=== PATIENT | female | born 1990 | race Caucasian/White ===

== ENCOUNTER 2016-10-18 22:16 | Emergency (ER) | payer BC ==
[2016-10-18] MEDS ORDERED: Albuterol/Ipratropium 3.0-0.5 MG/3 ML Neb Soln NEB SCH (22:30)
[2016-10-18] MEDS ORDERED: ALPRAZolam 0.5 MG Tab PO ONE (22:30)
[2016-10-18] MEDS ORDERED: predniSONE 20 MG Tab PO ONE (22:46)
--- NOTE | 2016-10-18 23:25 | EDM.PDOC ---
ED HPI GENERAL MEDICAL PROBLEM - General Chief Complaint: Respiratory Problem Stated Complaint: ASTHMA ATTACK Time Seen by Provider: 10/18/16 22:17 Source of Information: Reports: Patient History Limitations: Reports: No Limitations - History of Present Illness INITIAL COMMENTS - FREE TEXT/NARRATIVE: HISTORY AND PHYSICAL: History of present illness: [26 show female with a history of anxiety previously treated and asthma not requiring treatment in years now presents to the emergency department complaining of anxiety and asthma. Patient states she perceives some wheezing earlier today. This caused her anxiety to act up she went to her brother's house and uses nebulized treatment. She feels improved now came to the emergency department for evaluation. Patient thinks environmental triggers such as the wet weather over the last day and seasonal allergies caused her asthma back up. She has no fevers chills sweats or shaking chills. She feels tightness with her wheezing and anxiety however she has no productive cough or fever and has no exertional chest pain or pleuritic pain.] Review of systems: As per history of present illness and below otherwise all systems reviewed and negative. Past medical history: As per history of present illness and as reviewed below otherwise noncontributory. Surgical history: As per history of present illness and as reviewed below otherwise noncontributory. Social history: No reported history of drug or alcohol abuse. Family history: As per history of present illness and as reviewed below otherwise noncontributory. Physical exam: Smiling well-appearing very cheerful normal respiratory rate and pulse ox no tachycardia mild prolonged expirations bilateral no matt wheezes HEENT: Atraumatic, normocephalic, pupils reactive, negative for conjunctival pallor or scleral icterus, mucous membranes moist, throat clear, neck supple, nontender, trachea midline. Lungs: Clear to auscultation, breath sounds equal bilaterally, chest nontender. Heart: S1S2, regular, negative for clicks, rubs, or JVD. Abdomen: Soft, nondistended, nontender. Negative for masses or hepatosplenomegaly. Negative for costovertebral tenderness. Pelvis: Stable nontender. Genitourinary: Deferred. Rectal: Deferred. Extremities: Atraumatic, negative for cords or calf pain. Neurovascular unremarkable. Neuro: Awake, alert, oriented. Cranial nerves grossly unremarkable. Cerebellum unremarkable. Motor and sensory unremarkable throughout. Exam nonfocal. Diagnostics: [Chest x-ray no acute disease interpreted by me revealed] EKG Normal sinus rhythm at 92 normal axis no STEMI Therapeutics: [Single albuterol nebulized therapy and prednisone by mouth] Impression: [Asthma exacerbation anxiety exacerbation ] Plan: [Signs and symptoms consistent with mild environmental triggered asthma exacerbation with associated anxiety symptoms. X-ray benign normal respiratory rate and pulse ox heart rate 90 on M.D. exam ,no clinical evidence of PE Patient improved after treatment.no further workup or treatment indicated patient will follow up PCP strict return precautions given Definitive disposition and diagnosis as appropriate pending reevaluation and review of above. chest tightness Pain Score (Numeric/FACES): 5 - Related Data Allergies Allergy/AdvReac Type Severity Reaction Status Date / Time lurasidone [From Latuda] Allergy Paralysis Verified 10/18/16 22:20 Penicillins Allergy Other Verified 10/18/16 22:20 Home Meds: Home Meds Albuterol Sulfate [Proair Hfa] 8.5 gm IH Q4H PRN #1 hfa.aer.ad 10/18/16 [Rx] Control Pills 1 tab PO DAILY 10/18/16 [History] Prednisone [IMW: predniSONE] 60 mg PO WITHBREAKFAST #5 tab 10/18/16 [Rx] Past Medical History HEENT History: Reports: None Cardiovascular History: Reports: None, Hypertension Respiratory History: Reports: Asthma Gastrointestinal History: Reports: None Genitourinary History: Reports: None 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 Musculoskeletal History: Reports: None Neurological History: Reports: None Psychiatric History: Reports: Anxiety, Bipolar, Dementia, OCD Endocrine/Metabolic History: Reports: None Hematologic History: Reports: None Immunologic History: Reports: None Oncologic (Cancer) History: Reports: None Dermatologic History: Reports: None - Infectious Disease History Infectious Disease History: Reports: None - Past Surgical History GI Surgical History: Reports: Cholecystectomy Social & Family History - Family History Family Medical History: Noncontributory - Tobacco Use Smoking Status *Q: Never Smoker - Caffeine Use Caffeine Use: Reports: Coffee - Recreational Drug Use Recreational Drug Use: No ED ROS GENERAL - Review of Systems Review Of Systems: See Below (History of present illness) ED EXAM, GENERAL - Physical Exam Exam: See Below (History of present illness) Course - Vital Signs Last Recorded V/S: Last Vital Signs Temp 36.6 C 10/18/16 22:21 Pulse 99 10/18/16 22:21 Resp 18 10/18/16 22:21 BP 116/79 10/18/16 22:21 Pulse Ox 98 10/18/16 22:21 - Orders/Labs/Meds Orders: Active Orders 24 hr Category Date Time Status RT Aerosol Therapy [RC] ASDIRECTED Care 10/18/16 22:32 Active Chest 1V Frontal [CR] Stat Exams 10/18/16 22:33 Taken Albuterol/Ipratropium [DuoNeb 3.0-0.5 MG/3 ML] Med 10/18/16 22:30 Active 3 ml NEB STAT predniSONE Med 10/19/16 22:32 Once 40 mg PO ONETIME ONE Medication Orders Albuterol/Ipratropium (Duoneb 3.0-0.5 Mg/3 Ml) 3 ml NEB STAT EMILIA Last Admin: 10/18/16 22:42 Dose: 3 ml Prednisone (Prednisone) 40 mg PO ONETIME ONE Stop: 10/19/16 22:33 Meds: Medications Generic Name Dose Route Start Last Admin Trade Name Freq PRN Reason Stop Dose Admin Albuterol/Ipratropium 3 ml 10/18/16 22:30 10/18/16 22:42 Duoneb 3.0-0.5 Mg/3 Ml NEB 3 ml STAT EMILIA Administration Prednisone 40 mg 10/19/16 22:32 Prednisone PO 10/19/16 22:33 ONETIME ONE Discontinued Medications Generic Name Dose Route Start Last Admin Trade Name Freq PRN Reason Stop Dose Admin Alprazolam 0.5 mg 10/18/16 22:30 10/18/16 23:03 Xanax PO 10/18/16 22:31 0.5 mg NOW ONE Administration Prednisone 40 mg 10/18/16 22:46 10/18/16 23:02 Prednisone PO 10/18/16 22:47 40 mg ONETIME ONE Administration Departure - Departure Time of Disposition: 23:30 Disposition: Home, Self-Care 01 Condition: Good Clinical Impression: Asthma attack, Anxiety - Discharge Information Instructions: Asthma, Adult Referrals: PCP,None [Primary Care Provider] - Forms: ED Department Discharge Additional Instructions: It appears that environmental triggers have cause you to have an attack of your asthma today. Your symptoms are very mild and improved dramatically after treatment. Finish prednisone as prescribed once a day for more days. Use your inhaler 2 puffs every 4 hours as needed with a spacer. It seems that your asthma attack caused an episode of anxiety for you. Follow-up with your DrGuerline for reevaluation and to discuss whether a prescription for anxiety medicine might be right for you. Your Dr. in one to 2 days and return immediately for new severe or worsening symptoms - My Orders Last 24 Hours: My Active Orders 10/18/16 22:30 Albuterol/Ipratropium [DuoNeb 3.0-0.5 MG/3 ML] 3 ml NEB STAT 10/18/16 22:32 RT Aerosol Therapy [RC] ASDIRECTED 10/18/16 22:33 Chest 1V Frontal [CR] Stat 10/19/16 22:32 predniSONE 40 mg PO ONETIME ONE - Assessment/Plan Last 24 Hours: My Active Orders 10/18/16 22:30 Albuterol/Ipratropium [DuoNeb 3.0-0.5 MG/3 ML] 3 ml NEB STAT 10/18/16 22:32 RT Aerosol Therapy [RC] ASDIRECTED 10/18/16 22:33 Chest 1V Frontal [CR] Stat 10/19/16 22:32 predniSONE 40 mg PO ONETIME ONE
[2016-10-19 00:05] VITALS: BP 97/59
--- NOTE | 2016-10-19 15:02 | CR ---
EXAM DATE: 10/18/16 PATIENT'S AGE: 26 Patient: CASS GILMORE Facility: [place], [place] Site . Site : 1990 Study: XRay Chest [id number] 10:48:21 PM Ordering Physician: Nico Taylor Final Report: Indication: Shortness of breath, asthma attack Technique: Chest 1 view Comparison: None Findings/Impression: Cardiovascular and mediastinum: Heart size and vasculature are normal in caliber and appearance. Mediastinum is within normal limits. Lungs and pleural space: Lungs are clear. No sign of infiltrate or mass. No sign of pleural effusion. No pneumothorax. Bones and soft tissues: Surgical clips noted in the right upper quadrant Dictated by Shira Hudson MD @ Oct 18 2016 11:06PM (Electronic Signature) Report Signed by Proxy. ROGERIO
[2016-10-19] MEDS ORDERED: predniSONE 20 MG Tab PO ONE (22:32)
== END 2016-10-18 23:59 | disposition home or self-care (01) ==
LOC: MW.ED 22:16
DX: J45.901 Unspecified asthma with (acute) exacerbation (principal); F41.9 Anxiety disorder, unspecified; Z88.0 Allergy status to penicillin; Z88.8 Allergy status to other drugs, medicaments and biological substances; Z90.49 Acquired absence of other specified parts of digestive tract
CPT/HCPCS: 71010; 99285; A9270; 93005; 99283

== ENCOUNTER 2017-05-01 11:19 | Emergency (ER) | payer BC ==
[2017-05-01] MEDS ORDERED: Albuterol/Ipratropium 3.0-0.5 MG/3 ML Neb Soln NEB ONE (11:39)
--- NOTE | 2017-05-01 11:43 | EDM.PDOC ---
ED HPI GENERAL MEDICAL PROBLEM - General Chief Complaint: Respiratory Problem Stated Complaint: ASTHMA/COUGHING Time Seen by Provider: 05/01/17 11:40 Source of Information: Reports: Patient History Limitations: Reports: No Limitations - History of Present Illness INITIAL COMMENTS - FREE TEXT/NARRATIVE: HISTORY AND PHYSICAL: [26-year-old female presenting with difficulty breathing she has history of asthma] History of Present Illness: [Patient relates having difficulty for the last month shortness of breath and coughing Patient has been using her brother's nebulizer machine up to 3 times a day. She hasn't inhaler of Proventil and her has not been helping. Generally she takes control pills daily and nothing else] Review of Systems: As per history of present illness and below otherwise all systems reviewed and negative. Past medical history: As per history of present illness and as reviewed below otherwise noncontributory. Surgical history: As per history of present illness and as reviewed below otherwise noncontributory. Social history: No reported history of drug or alcohol abuse. Family history: As per history of present illness and as reviewed below otherwise noncontributory. Physical exam: Slender young woman who answers questions appropriately. she is speaking in full sentences, and complaining of shortness of breath HEENT: Atraumatic, normocehpalic, pupils reactive, negative for conjunctival pallor or scleral icterus, mucous membranes moist, throat clear, neck supple, nontender, trachea midline. Lungs: Clear to auscultation, breath sounds equal bilaterally and shallow, chest non tender. Heart: S1S2, regular, negative for clicks, rubs, or JVD. Abdomen: Soft, nondistended, nontender. Negative for masses or hepatossplenmegaly. Negative for costovertebral tenderness. Pelvis: Stable nontender. Genitourinary: Deferred. Rectal: Deferred Extremities: Atraumatic, negative for cords or calf pain. Neurovascular unremarkable. Neuro: Awake, alert, oriented. Cranial nerves II through XII unremarkable. Cerebellum unremarkable. Motor and sensory unremarkable throughout. Exam nonfocal. Discussed with the patient that she is not having a pneumonia. Exacerbation of asthma Diagnostics: [Chest x-ray] Therapeutics: [DuoNeb] Solu-Medrol 125 IM Impression: [Asthma exacerbation] Plan: [Discharged to home ]DuoNeb per nebulizer up to 4 times daily Medrol Dosepak Definitive disposition and diagnosis as appropriate pending reevaluation and review of above. Onset: Gradual Duration: Week(s): (4) Location: Reports: Chest - Related Data Allergies Allergy/AdvReac Type Severity Reaction Status Date / Time lurasidone [From Latuda] Allergy Paralysis Verified 05/01/17 11:34 Penicillins Allergy Other Verified 05/01/17 11:34 Home Meds: Home Meds Albuterol Sulfate [Proair Hfa] 8.5 gm IH Q4H PRN #1 hfa.aer.ad 10/18/16 [Rx] Control Pills 1 tab PO DAILY 10/18/16 [History] Prednisone [IMW: predniSONE] 60 mg PO WITHBREAKFAST #15 tab 10/18/16 [Rx] Albuterol/Ipratropium [DuoNeb 3.0-0.5 MG/3 ML] 3 ml .XX Q6HR PRN #1 box [Rx] methylPREDNISolone [Medrol] 4 mg PO ASDIRECTED #1 dosepk 05/01/17 [Rx] Past Medical History HEENT History: Reports: None Cardiovascular History: Reports: None, Hypertension Respiratory History: Reports: Asthma Gastrointestinal History: Reports: None Genitourinary History: Reports: None 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 Musculoskeletal History: Reports: None Neurological History: Reports: None Psychiatric History: Reports: Anxiety, Bipolar, Dementia, OCD Endocrine/Metabolic History: Reports: None Hematologic History: Reports: None Immunologic History: Reports: None Oncologic (Cancer) History: Reports: None Dermatologic History: Reports: None - Infectious Disease History Infectious Disease History: Reports: Chicken Pox - Past Surgical History GI Surgical History: Reports: Cholecystectomy Social & Family History - Family History Family Medical History: Noncontributory - Tobacco Use Smoking Status *Q: Never Smoker - Caffeine Use Caffeine Use: Reports: Other Other Caffeine Use: occasional use - Recreational Drug Use Recreational Drug Use: No ED ROS GENERAL - Review of Systems Review Of Systems: ROS reveals no pertinent complaints other than HPI. ED EXAM, GENERAL - Physical Exam Exam: See Below (See dictation) Course - Vital Signs Last Recorded V/S: Last Vital Signs Temp 37.0 C 05/01/17 11:31 Pulse 100 05/01/17 11:31 Resp 18 05/01/17 11:31 BP 111/74 05/01/17 11:31 Pulse Ox - Orders/Labs/Meds Orders: Active Orders 24 hr Category Date Time Status RT Aerosol Therapy [RC] ASDIRECTED Care 05/01/17 11:39 Active Chest 2V [CR] Stat Exams 05/01/17 11:39 Taken Meds: Medications Discontinued Medications Generic Name Dose Route Start Last Admin Trade Name Freq PRN Reason Stop Dose Admin Albuterol/Ipratropium 3 ml 05/01/17 11:39 05/01/17 12:02 Duoneb 3.0-0.5 Mg/3 Ml NEB 05/01/17 11:40 3 ml ONETIME ONE Administration Methylprednisolone Sodium Succinate 125 mg 05/01/17 11:49 05/01/17 12:41 Solu-Medrol IM 05/01/17 11:50 125 mg ONETIME ONE Administration Departure - Departure Time of Disposition: 13:19 Disposition: Home, Self-Care 01 Condition: Good Clinical Impression: Acute asthma - Discharge Information Prescriptions: Albuterol/Ipratropium [DuoNeb 3.0-0.5 MG/3 ML] 3 ml .XX Q6HR PRN #1 box PRN Reason: Shortness Of Breath methylPREDNISolone [Medrol] 4 mg PO ASDIRECTED #1 dosepk Instructions: Asthma, Adult Referrals: Marianne Noriega MD [Primary Care Provider] - Forms: ED Department Discharge Additional Instructions: The following information is given to patients seen in the emergency department who are being discharged to home. This information is to outline your options for follow-up care. We provide all patients seen in our emergency department with a follow-up referral. The need for follow-up, as well as the timing and circumstances, are variable depending upon the specifics of your emergency department visit. If you don't have a primary care physician on staff, we will provide you with a referral. We always advise you to contact your personal physician following an emergency department visit to inform them of the circumstance of the visit and for follow-up with them and/or the need for any referrals to a consulting specialist. The emergency department will also refer you to a specialist when appropriate. This referral assures that you have the opportunity for followup care with a specialist. All of these measure are taken in an effort to provide you with optimal care, which includes your followup. Under all circumstances we always encourage you to contact your private physician who remains a resource for coordinating your care. When calling for followup care, please make the office aware that this follow-up is from your recent emergency room visit. If for any reason you are refused follow-up, please contact the [facility] emergency department at and asked to speak to the emergency department charge nurse. You were treated with DuoNeb per nebulizer in the ER You were treated with Solu-Medrol injection, which is a steroid to reduce inflammation Prescription for DuoNeb has been sent to your pharmacy Prescription for steroid of Medrol has been given to pharmacy Follow-up with your primary care provider next week Any worsening over the weekend please return for further evaluation and treatment - My Orders Last 24 Hours: My Active Orders 05/01/17 11:39 RT Aerosol Therapy [RC] ASDIRECTED Chest 2V [CR] Stat - Assessment/Plan Last 24 Hours: My Active Orders 05/01/17 11:39 RT Aerosol Therapy [RC] ASDIRECTED Chest 2V [CR] Stat
[2017-05-01] MEDS ORDERED: methylPREDNISolone Sodium Succinate 125 MG/2 ML SDV IM ONE (11:49)
[2017-05-01 13:38] VITALS: BP 105/61
--- NOTE | 2017-05-03 17:28 | CR ---
EXAM DATE: 05/01/17 PATIENT'S AGE: 26 Patient: CASS GILMORE Facility: [place], [place] Site . Site : 1990 Study: XRay Chest [id number]/17/2018 12:37:28 PM Ordering Physician: Doctor Moore Final Report: INDICATION: pain/shortness of breath. Asthma is acting up COMPARISON: Chest x-ray dated 18 October 2016. FINDINGS: PA and lateral chest x-rays show a normal cardiac silhouette. The lungs show no focal pulmonary opacities. Sharp pleural margins. No pneumothorax. IMPRESSION: No evidence of acute pulmonary abnormalities. Dictated by Jaquan Calderon MD @ 05/01/2017 12:53:40 PM Dictated by: Jaquan Calderon MD @ 05/01/2017 12:53:51 (Electronic Signature) Report Signed by Proxy. HU[facility] PSYCHIATRIC CENTERAva
== END 2017-05-01 13:27 | disposition home or self-care (01) ==
LOC: MW.ED 11:19
DX: J45.901 Unspecified asthma with (acute) exacerbation (principal); I10 Essential (primary) hypertension; Z88.0 Allergy status to penicillin; Z88.8 Allergy status to other drugs, medicaments and biological substances
CPT/HCPCS: 71046; 94640; 99283; J2930

== ENCOUNTER 2018-07-12 00:37 | Emergency (ER) | payer BC ==
--- NOTE | 2018-07-12 00:52 | EDM.PDOC ---
ED HPI GENERAL MEDICAL PROBLEM - General Stated Complaint: CHEST PAIN Time Seen by Provider: 07/12/18 00:44 - History of Present Illness INITIAL COMMENTS - FREE TEXT/NARRATIVE: HISTORY AND PHYSICAL: History of present illness: Patient 27-year-old female presents with chest pain is vaguely described without associated chest breath palpitations nausea vomiting or diaphoresis. She denies drugs or alcohol Review of systems: As per history of present illness and below otherwise all systems reviewed and negative. Past medical history: As per history of present illness and as reviewed below otherwise noncontributory. Surgical history: As per history of present illness and as reviewed below otherwise noncontributory. Social history: No reported history of drug or alcohol abuse. Family history: As per history of present illness and as reviewed below otherwise noncontributory. Physical exam: HEENT: Atraumatic, normocephalic, pupils reactive, negative for conjunctival pallor or scleral icterus, mucous membranes moist, throat clear, neck supple, nontender, trachea midline. Lungs: Clear to auscultation, breath sounds equal bilaterally, chest nontender. Heart: S1S2, regular, negative for clicks, rubs, or JVD. Abdomen: Soft, nondistended, nontender. Negative for masses or hepatosplenomegaly. Negative for costovertebral tenderness. Pelvis: Stable nontender. Genitourinary: Deferred. Rectal: Deferred. Extremities: Atraumatic, negative for cords or calf pain. Neurovascular unremarkable. Neuro: Awake, alert, oriented. Cranial nerves II through XII unremarkable. Cerebellum unremarkable. Motor and sensory unremarkable throughout. Exam nonfocal. Diagnostics: CBC CMP troponin PT/INR chest x-ray EKG Therapeutics: IV O2 monitor Impression: #1 ATypical chest pain Definitive disposition and diagnosis as appropriate pending reevaluation and review of above. - Related Data Allergies Allergy/AdvReac Type Severity Reaction Status Date / Time lurasidone [From Latuda] Allergy Paralysis Verified 07/12/18 00:45 Penicillins Allergy Rash Verified 07/12/18 00:45 Home Meds: Home Meds Fluticasone/Salmeterol [Advair Hfa 230-21 Mcg Inhaler] 1 puff IH ASDIRECTED PRN 01/03/18 [History] Norgestimate-Ethinyl Estradiol [Tri-Linyah Tablet] 1 each PO DAILY 07/12/18 [ History] Past Medical History HEENT History: Reports: None Cardiovascular History: Reports: None, Hypertension Respiratory History: Reports: Asthma Gastrointestinal History: Reports: None Genitourinary History: Reports: None 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 Musculoskeletal History: Reports: None Neurological History: Reports: None Psychiatric History: Reports: Anxiety, Bipolar, Dementia, OCD Endocrine/Metabolic History: Reports: None Hematologic History: Reports: None Immunologic History: Reports: None Oncologic (Cancer) History: Reports: None Dermatologic History: Reports: None - Infectious Disease History Infectious Disease History: Reports: Chicken Pox - Past Surgical History GI Surgical History: Reports: Cholecystectomy Social & Family History - Family History Family Medical History: Noncontributory - Caffeine Use Caffeine Use: Reports: Other Other Caffeine Use: occasional use ED ROS GENERAL - Review of Systems Review Of Systems: ROS reveals no pertinent complaints other than HPI. ED EXAM, GENERAL - Physical Exam Exam: See Below (The dictation) Course - Vital Signs Last Recorded V/S: Last Vital Signs Temp 36.6 C 07/12/18 00:43 Pulse 90 07/12/18 00:43 Resp BP 125/83 07/12/18 00:43 Pulse Ox 100 07/12/18 00:43 - Orders/Labs/Meds Orders: Active Orders 24 hr Category Date Time Status EKG Documentation Completion [RC] STAT Care 07/12/18 00:48 Active Chest 1V Frontal [CR] Stat Exams 07/12/18 00:48 Ordered COMPREHENSIVE METABOLIC PN,CMP [CHEM] Stat Lab 07/12/18 01:04 Received INR,PT,PROTHROMBIN TIME [COAG] Stat Lab 07/12/18 01:04 Received TROPONIN I [CHEM] Stat Lab 07/12/18 01:04 Received Labs: Laboratory Tests 07/12/18 07/12/18 07/12/18 Range/Units 01:04 01:10 01:10 WBC 8.54 (4.0-11.0) K/uL RBC 4.91 (4.30-5.90) M/uL Hgb 14.5 (12.0-16.0) g/dL Hct 41.5 (36.0-46.0) % MCV 84.5 (80.0-98.0) fL MCH 29.5 (27.0-32.0) pg MCHC 34.9 (31.0-37.0) g/dL RDW Std Deviation 35.8 (28.0-62.0) fl RDW Coeff of Robbie 12 (11.0-15.0) % Plt Count 296 (150-400) K/uL MPV 9.50 (7.40-12.00) fL Neut % (Auto) 36.7 L (48.0-80.0) % Lymph % (Auto) 52.7 H (16.0-40.0) % Daniels % (Auto) 9.5 (0.0-15.0) % Eos % (Auto) 0.9 (0.0-7.0) % Baso % (Auto) 0.2 (0.0-1.5) % Neut # (Auto) 3.1 (1.4-5.7) K/uL Lymph # (Auto) 4.5 H (0.6-2.4) K/uL Daniels # (Auto) 0.8 (0.0-0.8) K/uL Eos # (Auto) 0.1 (0.0-0.7) K/uL Baso # (Auto) 0.0 (0.0-0.1) K/uL Urine Color YELLOW Urine Appearance CLEAR Urine pH 6.5 (5.0-8.0) Ur Specific [place] 1.015 (1.001-1.035) Urine Protein NEGATIVE (NEGATIVE) mg/dL Urine Glucose (UA) NEGATIVE (NEGATIVE) mg/dL Urine Ketones NEGATIVE (NEGATIVE) mg/dL Urine Occult Blood NEGATIVE (NEGATIVE) Urine Nitrite NEGATIVE (NEGATIVE) Urine Bilirubin NEGATIVE (NEGATIVE) Urine Urobilinogen 0.2 (<2.0) EU/dL Ur Leukocyte Esterase NEGATIVE (NEGATIVE) Urine HCG, Qual NEGATIVE (NEGATIVE) Departure - Departure Time of Disposition: 01:33 Disposition: Home, Self-Care 01 Condition: Good Clinical Impression: Atypical chest pain - Discharge Information Additional Instructions: The following information is given to patients seen in the emergency department who are being discharged to home. This information is to outline your options for follow-up care. We provide all patients seen in our emergency department with a follow-up referral. The need for follow-up, as well as the timing and circumstances, are variable depending upon the specifics of your emergency department visit. If you don't have a primary care physician on staff, we will provide you with a referral. We always advise you to contact your personal physician following an emergency department visit to inform them of the circumstance of the visit and for follow-up with them and/or the need for any referrals to a consulting specialist. The emergency department will also refer you to a specialist when appropriate. This referral assures that you have the opportunity for followup care with a specialist. All of these measure are taken in an effort to provide you with optimal care, which includes your followup. Under all circumstances we always encourage you to contact your private physician who remains a resource for coordinating your care. When calling for followup care, please make the office aware that this follow-up is from your recent emergency room visit. If for any reason you are refused follow-up, please contact the [facility] emergency department at and asked to speak to the emergency department charge nurse. Follow up primary medical doctor as needed as discussed during your is discussed - My Orders Last 24 Hours: My Active Orders 07/12/18 00:48 EKG Documentation Completion [RC] STAT Chest 1V Frontal [CR] Stat 07/12/18 01:04 COMPREHENSIVE METABOLIC PN,CMP [CHEM] Stat INR,PT,PROTHROMBIN TIME [COAG] Stat TROPONIN I [CHEM] Stat - Assessment/Plan Last 24 Hours: My Active Orders 07/12/18 00:48 EKG Documentation Completion [RC] STAT Chest 1V Frontal [CR] Stat 07/12/18 01:04 COMPREHENSIVE METABOLIC PN,CMP [CHEM] Stat INR,PT,PROTHROMBIN TIME [COAG] Stat TROPONIN I [CHEM] Stat
--- NOTE | 2018-07-12 01:43 | CR ---
Indication: Chest pain Technique: Chest 1 view Comparison: N May 01, 2017 one Findings/Impression: Normal cardiomediastinal silhouette. Clear lungs and pleural spaces. No acute osseous abnormality. Surgical clip in the right upper quadrant. Dictated by Shira Hudson MD @ Jul 12 2018 1:41AM Signed by Dr. Shira Hudson @ Jul 12 2018 1:42AM
[2018-07-12 01:58] LABS: CHLORIDE,CL 102 mmol/L (98-107); SODIUM,NA 140 mmol/L (136-145)
[2018-07-12 02:19] VITALS: BP 103/69
== END 2018-07-12 02:16 | disposition home or self-care (01) ==
LOC: MW.ED 00:37
DX: R07.89 Other chest pain (principal); I10 Essential (primary) hypertension; J45.909 Unspecified asthma, uncomplicated; F31.9 Bipolar disorder, unspecified; F41.9 Anxiety disorder, unspecified; Z88.0 Allergy status to penicillin; Z88.8 Allergy status to other drugs, medicaments and biological substances; Z79.899 Other long term (current) drug therapy
CPT/HCPCS: 36415; 71045; 71045-26; 80053; 81003; 81025; 84484; 85025; 85610; 93005; 99284; 99285-25

== ENCOUNTER 2019-09-08 12:26 | Emergency (ER) | payer OTHER ==
--- NOTE | 2019-09-08 12:47 | EDM.PDOC ---
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 She has no current bleeding the cramping type pain is still there suprapubically she denies any fever chills dysuria vaginal discharge or other conditions or other complaints. Review of systems: As per history of present illness and below otherwise all systems reviewed and negative. Past medical history: As per history of present illness and as reviewed below otherwise noncontributory. Surgical history: As per history of present illness and as reviewed below otherwise noncontributory. Social history: No reported history of drug or alcohol abuse. Family history: As per history of present illness and as reviewed below otherwise noncontributory. Physical exam: HEENT: Atraumatic, normocephalic, pupils reactive, negative for conjunctival pallor or scleral icterus, mucous membranes moist, throat clear, neck supple, nontender, trachea midline. Lungs: Clear to auscultation, breath sounds equal bilaterally, chest nontender. Heart: S1S2, regular, negative for clicks, rubs, or JVD. Abdomen: Soft, nondistended, nontender. Negative for masses or hepatosplenomegaly. Negative for costovertebral tenderness. Pelvis: Stable nontender. Genitourinary: Deferred. Rectal: Deferred. Extremities: Atraumatic, negative for cords or calf pain. Neurovascular unremarkable. Neuro: Awake, alert, oriented. Cranial nerves II through XII unremarkable. Cerebellum unremarkable. Motor and sensory unremarkable throughout. Exam nonfocal. Diagnostics: [] Therapeutics: [] Impression: [] Plan: First trimester bleed work-up and reassess. [] Definitive disposition and diagnosis as appropriate pending reevaluation and review of above. Adbominal Pain Score (Numeric/FACES): 7 - Related Data Allergies Allergy/AdvReac Type Severity Reaction Status Date / Time lurasidone [From Latuda] Allergy Paralysis Verified 09/08/19 12:39 Penicillins Allergy Rash Verified 09/08/19 12:39 Home Meds: Home Meds Fluticasone Propion/Salmeterol [Advair Hfa 230-21 Mcg Inhaler] 1 puff IH ASDIRECTED PRN 01/03/18 [History] Albuterol [Ventolin HFA] 8 gm INH ASDIRECTED 09/08/19 [History] Montelukast Sodium [Singulair] 1 tab PO ASDIRECTED 09/08/19 [History] Past Medical History HEENT History: Reports: None Cardiovascular History: Reports: None, Hypertension Respiratory History: Reports: Asthma Gastrointestinal History: Reports: None Genitourinary History: Reports: None 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 Musculoskeletal History: Reports: None Neurological History: Reports: None Psychiatric History: Reports: Anxiety, Bipolar, Dementia, OCD Endocrine/Metabolic History: Reports: None Hematologic History: Reports: None Immunologic History: Reports: None Oncologic (Cancer) History: Reports: None Dermatologic History: Reports: None - Infectious Disease History Infectious Disease History: Reports: Chicken Pox - Past Surgical History GI Surgical History: Reports: Cholecystectomy Social & Family History - Family History Family Medical History: Noncontributory - Caffeine Use Caffeine Use: Reports: Other Other Caffeine Use: occasional use ED ROS GENERAL - Review of Systems Review Of Systems: See Below ED EXAM, GENERAL - Physical Exam Exam: See Below Course - Vital Signs Text/Narrative:: Ultrasound read by radiology the uterus is empty there is no evidence for intrauterine or ectopic . The hCG is 288 this was seemed indicate that the is either too early to be seen or a miscarriage has occurred. Patient will require follow-up with OB this week. Last Recorded V/S: Last Vital Signs Temp 36.0 C L 09/08/19 12:41 Pulse 122 H 09/08/19 12:41 Resp 15 09/08/19 12:41 BP 105/65 09/08/19 12:41 Pulse Ox 97 09/08/19 12:41 - Orders/Labs/Meds Labs: Laboratory Tests 09/08/19 09/08/19 09/08/19 Range/Units 12:37 13:11 13:11 WBC 6.90 (4.0-11.0) K/uL RBC 4.81 (4.30-5.90) M/uL Hgb 13.8 (12.0-16.0) g/dL Hct 40.0 (36.0-46.0) % MCV 83.2 (80.0-98.0) fL MCH 28.7 (27.0-32.0) pg MCHC 34.5 (31.0-37.0) g/dL RDW Std Deviation 38.7 (28.0-62.0) fl RDW Coeff of Robbie 13 (11.0-15.0) % Plt Count 315 (150-400) K/uL MPV 9.30 (7.40-12.00) fL Neut % (Auto) 56.8 (48.0-80.0) % Lymph % (Auto) 31.4 (16.0-40.0) % Bremer % (Auto) 10.6 (0.0-15.0) % Eos % (Auto) 0.9 (0.0-7.0) % Baso % (Auto) 0.3 (0.0-1.5) % Neut # (Auto) 3.9 (1.4-5.7) K/uL Lymph # (Auto) 2.2 (0.6-2.4) K/uL Bremer # (Auto) 0.7 (0.0-0.8) K/uL Eos # (Auto) 0.1 (0.0-0.7) K/uL Baso # (Auto) 0.0 (0.0-0.1) K/uL Nucleated RBC % 0.0 /100WBC Nucleated RBCs # 0 K/uL HCG, Quant 288.0 mIU/mL Urine Color YELLOW Urine Appearance CLEAR Urine pH 6.0 (5.0-8.0) Ur Specific [place] 1.025 (1.001-1.035) Urine Protein NEGATIVE (NEGATIVE) mg/dL Urine Glucose (UA) NEGATIVE (NEGATIVE) mg/dL Urine Ketones 40 H (NEGATIVE) mg/dL Urine Occult Blood NEGATIVE (NEGATIVE) Urine Nitrite NEGATIVE (NEGATIVE) Urine Bilirubin NEGATIVE (NEGATIVE) Urine Urobilinogen 0.2 (<2.0) EU/dL Ur Leukocyte Esterase NEGATIVE (NEGATIVE) Urine RBC 0-2 (0-2/HPF) Urine WBC 0-2 (0-5/HPF) Ur Epithelial Cells RARE (NONE-FEW) Urine Bacteria RARE (NEGATIVE) Urine Mucus LIGHT (NONE-MOD) Blood Type 09/08/19 Range/Units 13:11 WBC (4.0-11.0) K/uL RBC (4.30-5.90) M/uL Hgb (12.0-16.0) g/dL Hct (36.0-46.0) % MCV (80.0-98.0) fL MCH (27.0-32.0) pg MCHC (31.0-37.0) g/dL RDW Std Deviation (28.0-62.0) fl RDW Coeff of Robbie (11.0-15.0) % Plt Count (150-400) K/uL MPV (7.40-12.00) fL Neut % (Auto) (48.0-80.0) % Lymph % (Auto) (16.0-40.0) % Bremer % (Auto) (0.0-15.0) % Eos % (Auto) (0.0-7.0) % Baso % (Auto) (0.0-1.5) % Neut # (Auto) (1.4-5.7) K/uL Lymph # (Auto) (0.6-2.4) K/uL Bremer # (Auto) (0.0-0.8) K/uL Eos # (Auto) (0.0-0.7) K/uL Baso # (Auto) (0.0-0.1) K/uL Nucleated RBC % /100WBC Nucleated RBCs # K/uL HCG, Quant mIU/mL Urine Color Urine Appearance Urine pH (5.0-8.0) Ur Specific [place] (1.001-1.035) Urine Protein (NEGATIVE) mg/dL Urine Glucose (UA) (NEGATIVE) mg/dL Urine Ketones (NEGATIVE) mg/dL Urine Occult Blood (NEGATIVE) Urine Nitrite (NEGATIVE) Urine Bilirubin (NEGATIVE) Urine Urobilinogen (<2.0) EU/dL Ur Leukocyte Esterase (NEGATIVE) Urine RBC (0-2/HPF) Urine WBC (0-5/HPF) Ur Epithelial Cells (NONE-FEW) Urine Bacteria (NEGATIVE) Urine Mucus (NONE-MOD) Blood Type B POSITIVE Departure - Departure Time of Disposition: 14:16 Disposition: Home, Self-Care 01 Clinical Impression: Threatened - Discharge Information *PRESCRIPTION DRUG MONITORING PROGRAM REVIEWED*: Not Applicable *COPY OF PRESCRIPTION DRUG MONITORING REPORT IN PATIENT [place]: Not Applicable Instructions: Threatened Miscarriage, Vaginal Bleeding During , First Trimester Referrals: Marianne Noriega MD [Primary Care Provider] - Forms: ED Department Discharge Additional Instructions: The following information is given to patients seen in the emergency department who are being discharged to home. This information is to outline your options for follow-up care. We provide all patients seen in our emergency department with a follow-up referral. The need for follow-up, as well as the timing and circumstances, are variable depending upon the specifics of your emergency department visit. If you don't have a primary care physician on staff, we will provide you with a referral. We always advise you to contact your personal physician following an emergency department visit to inform them of the circumstance of the visit and for follow-up with them and/or the need for any referrals to a consulting specialist. The emergency department will also refer you to a specialist when appropriate. This referral assures that you have the opportunity for follow-up care with a specialist. All of these measure are taken in an effort to provide you with optimal care, which includes your follow-up. Under all circumstances we always encourage you to contact your private physician who remains a resource for coordinating your care. When calling for follow-up care, please make the office aware that this follow-up is from your recent emergency room visit. If for any reason you are refused follow-up, please contact the [facility] Emergency Department at and asked to speak to the emergency department charge nurse. [facility] [address] [place] [id number] [facility] [address] [place] [id number] Sepsis Event Note (ED) - Focused Exam Vital Signs: Vital Signs Temp Pulse Resp BP Pulse Ox 09/08/19 12:41 36.0 C L 122 H 15 105/65 97
[2019-09-08 12:52] VITALS: BP 105/65; PULSE 122
--- NOTE | 2019-09-08 13:19 | US ---
Limited obstetrical ultrasound: Multiple real-time images were obtained transvaginally. No intrauterine gestational sac is seen. Follicles are noted within both ovaries. No discrete adnexal abnormalities are appreciated. Simple appearing fluid is noted within the cul-de-sac. Measurements: Uterus: Length 7.4 cm, AP height 3.4 cm, transverse width 4.7 cm, endometrial thickness 7 mm Right ovary: 3.3 x 3.7 x 2.3 cm Left ovary: 2.4 x 2.6 x 1.6 cm Impression: 1. No intrauterine gestational sac. With positive test differential includes too early to visualize, miscarriage as well as nonvisualized ectopic . Diagnostic code #3 This report was dictated in MDT
== END 2019-09-08 14:40 | disposition home or self-care (01) ==
LOC: MW.ED 12:26
DX: O20.0 Threatened abortion (principal); O10.911 Unspecified pre-existing hypertension complicating pregnancy, first trimester; Z88.0 Allergy status to penicillin; Z88.8 Allergy status to other drugs, medicaments and biological substances; Z3A.01 Less than 8 weeks gestation of pregnancy
CPT/HCPCS: 36415; 76801; 76801-26; 81001; 84702; 85025; 86900; 86901; 99282; 99284-25

== ENCOUNTER 2019-11-21 20:43 | Emergency (ER) | payer OTHER ==
[2019-11-21] MEDS ORDERED: diphenhydrAMINE 50 MG/ML SDV IM ONE (20:55)
--- NOTE | 2019-11-21 21:02 | EDM.PDOC ---
ED HPI GENERAL MEDICAL PROBLEM - General Chief Complaint: Allergic Reaction Stated Complaint: POSSIBLE MEDICATION REACTION Time Seen by Provider: 11/21/19 20:45 Source of Information: Reports: Patient History Limitations: Reports: No Limitations - History of Present Illness INITIAL COMMENTS - FREE TEXT/NARRATIVE: Presents reporting no dystonic reaction. The patient states that she is 14 weeks and was having trouble with anxiety. She was given a prescription for Zoloft. She took the first tablet at 6 PM tonight. Now, she feels very shaky with her jaw clenching and some nausea but no vomiting. She states that she previously had a dystonic reaction to Latuda and this feels similar. She denies shortness of breath, chest pain, abdominal pain, vomiting, diarrhea, vaginal bleeding itch or discharge, dysuria, pelvic pain or cramping, fever. - Related Data Allergies Allergy/AdvReac Type Severity Reaction Status Date / Time lurasidone [From Latuda] Allergy Other Verified 11/21/19 20:56 Penicillins Allergy Rash Verified 11/21/19 20:56 Home Meds: Home Meds Fluticasone Propion/Salmeterol [Advair Hfa 230-21 Mcg Inhaler] 1 puff IH ASDIRECTED PRN 01/03/18 [History] Albuterol [Ventolin HFA] 8 gm INH ASDIRECTED 09/08/19 [History] Montelukast Sodium [Singulair] 1 tab PO ASDIRECTED 09/08/19 [History] Albuterol [Proventil Neb Soln] 1 ampule NEB ASDIRECTED 11/21/19 [History] Pnv No.103/Folic/Om3s/Fish Oil [ Gummies] 1 each PO 11/21/19 [History] Past Medical History HEENT History: Reports: None Cardiovascular History: Reports: None, Hypertension Respiratory History: Reports: Asthma Gastrointestinal History: Reports: None Genitourinary History: Reports: None 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 Musculoskeletal History: Reports: None Neurological History: Reports: None Psychiatric History: Reports: Anxiety, Bipolar, Dementia, OCD Endocrine/Metabolic History: Reports: None Hematologic History: Reports: None Immunologic History: Reports: None Oncologic (Cancer) History: Reports: None Dermatologic History: Reports: None - Infectious Disease History Infectious Disease History: Reports: Chicken Pox - Past Surgical History GI Surgical History: Reports: Cholecystectomy Social & Family History - Family History Family Medical History: Noncontributory - Caffeine Use Caffeine Use: Reports: Other Other Caffeine Use: occasional use ED ROS ALLERGIC REACTION - Review of Systems Review Of Systems: Comprehensive ROS is negative, except as noted in HPI. ED EXAM GENERAL NO PERIP PULSE - Physical Exam Exam: See Below Exam Limited By: No Limitations General Appearance: Alert, No Apparent Distress Ears: Normal External Exam Nose: Normal Inspection Throat/Mouth: Normal Inspection Head: Atraumatic, Normocephalic Neck: Normal Inspection Respiratory/Chest: No Respiratory Distress, Lungs Clear, Normal Breath Sounds Cardiovascular: Normal Peripheral Pulses, Regular Rate, Rhythm GI/Abdominal: Soft, No Distention Extremities: Normal Inspection Neurological: Alert, Oriented, Normal Cognition, No Motor/Sensory Deficits (speeking clearly), Other (shakey) Psychiatric: Anxious (mild) Skin Exam: Warm, Dry, Intact, Normal Color, No Rash Lymphatic: No Adenopathy Course - Vital Signs Last Recorded V/S: Last Vital Signs Temp 36.7 C 11/21/19 20:59 Pulse 106 H 11/21/19 20:59 Resp 14 11/21/19 20:59 BP 99/64 11/21/19 20:59 Pulse Ox 98 11/21/19 20:59 - Orders/Labs/Meds Meds: Medications Discontinued Medications Generic Name Dose Route Start Last Admin Trade Name Marshall PRN Reason Stop Dose Admin Diphenhydramine HCl 50 mg 11/21/19 20:55 11/21/19 21:21 Benadryl IM 11/21/19 20:56 50 mg ONETIME ONE Administration - Re-Assessments/Exams Free Text/Narrative Re-Assessment/Exam: 11/21/19 21:53 Symptoms resolved and the patient is feeling sleepy and desires to go home. Departure - Departure Time of Disposition: 21:02 Disposition: Home, Self-Care 01 Clinical Impression: Dystonic drug reaction - Discharge Information Referrals: PCP,None [Primary Care Provider] - Additional Instructions: The following information is given to patients seen in the emergency department who are being discharged to home. This information is to outline your options for follow-up care. We provide all patients seen in our emergency department with a follow-up referral. The need for follow-up, as well as the timing and circumstances, are variable depending upon the specifics of your emergency department visit. If you don't have a primary care physician on staff, we will provide you with a referral. We always advise you to contact your personal physician following an emergency department visit to inform them of the circumstance of the visit and for follow-up with them and/or the need for any referrals to a consulting specialist. The emergency department will also refer you to a specialist when appropriate. This referral assures that you have the opportunity for follow-up care with a specialist. All of these measure are taken in an effort to provide you with optimal care, which includes your follow-up. Under all circumstances we always encourage you to contact your private physician who remains a resource for coordinating your care. When calling for follow-up care, please make the office aware that this follow-up is from your recent emergency room visit. If for any reason you are refused follow-up, please contact the [facility] Emergency Department at and asked to speak to the emergency department charge nurse. 1. Discontinue Zoloft 2. If your symptoms continue, may take Benadryl 25 mg every 8 hours 3. Follow-up with your electric switch tester or primary provider for an alternative treatment plan for your anxiety. Sepsis Event Note (ED) - Focused Exam Vital Signs: Vital Signs Temp Pulse Resp BP Pulse Ox 11/21/19 20:59 36.7 C 106 H 14 99/64 98
[2019-11-21 22:07] VITALS: BP 95/62; PULSE 96
== END 2019-11-21 22:07 | disposition home or self-care (01) ==
LOC: MW.ED 20:43
DX: O99.352 Diseases of the nervous system complicating pregnancy, second trimester (principal); G24.09 Other drug induced dystonia; T43.225A Adverse effect of selective serotonin reuptake inhibitors, initial encounter; O10.912 Unspecified pre-existing hypertension complicating pregnancy, second trimester; O99.512 Diseases of the respiratory system complicating pregnancy, second trimester; J45.909 Unspecified asthma, uncomplicated; Z88.0 Allergy status to penicillin; Z88.8 Allergy status to other drugs, medicaments and biological substances; Z3A.14 14 weeks gestation of pregnancy
CPT/HCPCS: 96372; 99283; J1200; 99282

== ENCOUNTER 2020-05-11 02:17 | Inpatient (IN) | payer OTHER ==
[2020-05-11] MEDS ORDERED: Methylergonovine 0.2 MG/1 ML Amp IM PRN ×2 (04:06→14:13)
[2020-05-11] MEDS ORDERED: Lidocaine 1% 50 ML MDV INJECT PRN (04:06)
[2020-05-11] MEDS ORDERED: Nalbuphine 10 MG/1 ML Vial IVPUSH PRN (04:06)
[2020-05-11] MEDS ORDERED: Tranexamic Acid 1,000 MG in Sodium Chloride 0.9% 100 ML IV PRN (04:06)
[2020-05-11] MEDS ORDERED: Sodium Chloride 0.9% 10 ML Syringe FLUSH PRN (04:06)
[2020-05-11] MEDS ORDERED: Sodium Chloride 0.9% 2.5 ML Syringe FLUSH PRN (04:06)
[2020-05-11] MEDS ORDERED: Water For Irrigation,Sterile 1,000 ML Container IRR PRN (04:06)
[2020-05-11] MEDS ORDERED: Misoprostol 200 MCG Tab PO PRN (04:06)
[2020-05-11] MEDS ORDERED: Sodium Chloride 0.9% 10 ML SDV IV PRN (04:06)
[2020-05-11] MEDS ORDERED: Ondansetron 4 MG/2 ML SDV IVPUSH PRN (04:06)
[2020-05-11] MEDS ORDERED: Butorphanol 1 MG/ML SDV IVPUSH PRN (04:06)
[2020-05-11] MEDS ORDERED: Carboprost Tromethamine 250 MCG/1 ML Amp IM PRN (04:06)
[2020-05-11] MEDS ORDERED: Oxytocin/0.9 % Sodium Chloride 30 UNIT/500 ML BAG IV SCH (04:15)
--- NOTE | 2020-05-11 04:25 | PCM.LDHP ---
L&D History of Present Illness - General Date of Service: 05/11/20 Admit Problem/Dx: Patient Status Order with Admit Dx/Problem 05/11/20 02:47 Patient Status [ADT] Routine 05/11/20 04:07 Patient Status [ADT] Routine Admission Diagnosis/Problem Admission Diagnosis/Problem Source of Information: Patient History Limitations: Reports: No Limitations - History of Present Illness Introduction:: 29 year old G1 female at 39w2d (JORJE 05/16/2020 by US at 8w1d) presented to Labor and Delivery with contractions that started after she had her membranes swept at an appointment today. Contractions occurring every 3-5 minutes upon arrival to L&D. Reports good movement. Has had dark brown vaginal discharge, no bright red vaginal bleeding. Denies leaking fluid. has been complicated by maternal anxiety and IUGR diagnosed by AC <10%. - Related Data Allergies/Adverse Reactions: Allergies Allergy/AdvReac Type Severity Reaction Status Date / Time lurasidone [From Latuda] Allergy Other Verified 05/11/20 02:39 Penicillins Allergy Rash Verified 05/11/20 02:39 sertraline [From Zoloft] Allergy Other Verified 05/11/20 02:39 Home Medications: Home Meds Fluticasone Propion/Salmeterol [Advair Hfa 230-21 Mcg Inhaler] 2 puff IH BID PRN 01/03/18 [History] Montelukast Sodium [Singulair] 1 tab PO ASDIRECTED 09/08/19 [History] Pnv No.103/Folic/Om3s/Fish Oil [ Gummies] 1 each PO DAILY 11/21/19 [History] Albuterol Sulfate [Proair Digihaler] 90 mcg IH ASDIRECTED PRN 05/11/20 [History] Albuterol/Ipratropium [DuoNeb 3.0-0.5 MG/3 ML] 1 sprays(dnu) .XX ASDIRECTED PRN 05/11/20 [History] Past Medical History HEENT History: Reports: None Cardiovascular History: Reports: None, Hypertension Respiratory History: Reports: Asthma Gastrointestinal History: Reports: None Genitourinary History: Reports: None 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 Musculoskeletal History: Reports: None Neurological History: Reports: None Psychiatric History: Reports: Anxiety, Bipolar, Dementia, OCD Endocrine/Metabolic History: Reports: None Hematologic History: Reports: None Immunologic History: Reports: None Oncologic (Cancer) History: Reports: None Dermatologic History: Reports: None - Infectious Disease History Infectious Disease History: Reports: Chicken Pox - Past Surgical History GI Surgical History: Reports: Cholecystectomy Social & Family History - Family History Family Medical History: No Pertinent Family History - Caffeine Use Caffeine Use: Reports: Other Other Caffeine Use: occasional use H&P Review of Systems - Review of Systems: Review Of Systems: See Below General: Reports: No Symptoms HEENT: Reports: No Symptoms Pulmonary: Reports: No Symptoms Cardiovascular: Reports: No Symptoms Gastrointestinal: Reports: Abdominal Pain Genitourinary: Reports: No Symptoms Musculoskeletal: Reports: Back Pain Skin: Reports: No Symptoms Psychiatric: Reports: No Symptoms Neurological: Reports: No Symptoms Hematologic/Lymphatic: Reports: No Symptoms Immunologic: Reports: No Symptoms L&D Exam - Exam Exam: See Below - Vital Signs Weight: 147 lb - OB Specific Contraction Frequency (min): 2-4 minutes Contraction Intensity: Moderate Movement: Active Heart Tones: Present Heart Tones per Min: 130 Heart Rate (FHR) Variability: Moderate (6-25 bmp) Presentation: Vertex Estimated Weight: 3319 grams per US - Grewal Score Grewal Score Cervix Position: Posterior Grewal Score Consistency: Soft Grewal Score Effacement: >80% Grewal Score Dilation: > 5 cm Grewal Score 's Station: -2 Grewal Score Total: 9 - Exam General: Alert Lungs: Normal Respiratory Effort Cardiovascular: Regular Rate GI/Abdominal Exam: Soft, Non-Tender Genitourinary: Normal external exam, Cervical dilitation (5/80%/-3 station, cephalic per nursing) Back Exam: Normal Inspection Extremities: Normal Inspection Skin: Warm, Dry, Intact Neurological: Cranial Nerves Intact Psychiatric: Alert, Normal Mood Problem List Initiated/Reviewed/Updated: Yes Orders Last 24hrs: Active Orders 24 hr Category Date Time Status Patient Status [ADT] Routine ADT 05/11/20 04:07 Active Heart Tones [RC] CONTINUOUS Care 05/11/20 04:07 Active Non Stress Test [RC] PER UNIT ROUTINE Care 05/11/20 02:47 Active May Shower [RC] ASDIRECTED Care 05/11/20 04:07 Active Notify Provider [RC] PRN Care 05/11/20 04:07 Active Peripheral IV Care [RC] PRN Care 05/11/20 04:06 Active Up ad Shari [RC] ASDIRECTED Care 05/11/20 02:47 Active Vaginal Exam [RC] Click to Edit Care 05/11/20 02:47 Active Vital Signs [RC] PER UNIT ROUTINE Care 05/11/20 02:47 Active CBC W/O DIFF,HEMOGRAM [HEME] Routine Lab 05/11/20 04:07 Ordered RPR (SYPHILIS SERO) W/ RFLX [REF] Routine Lab 05/11/20 04:07 Ordered TYPE AND SCREEN [BBK] Routine Lab 05/11/20 04:07 Ordered Butorphanol [Stadol] Med 05/11/20 04:06 Active 1 mg IVPUSH Q1H PRN Carboprost Tromethamine [Hemabate DS] Med 05/11/20 04:06 Active 250 mcg IM ASDIRECTED PRN Lactated Ringers [Ringers, Lactated] 1,000 ml Med 05/11/20 04:15 Active IV ASDIRECTED Lidocaine 1% [Xylocaine 1%] Med 05/11/20 04:06 Active 50 ml INJECT ONETIME PRN Methylergonovine [Methergine] Med 05/11/20 04:06 Active 0.2 mg IM ASDIRECTED PRN Nalbuphine [Nubain] Med 05/11/20 04:06 Active 10 mg IVPUSH Q1H PRN Ondansetron [Zofran] Med 05/11/20 04:06 Active 4 mg IVPUSH Q6H PRN Oxytocin/0.9 % Sodium Chloride [Oxytocin 30 Unit/500 ML Med 05/11/20 04:15 Active -NS] 30 unit in 500 ml IV TITRATE Sodium Chloride 0.9% [Normal Saline] Med 05/11/20 04:06 Active 10 ml IV ASDIRECTED PRN Sodium Chloride 0.9% [Saline Flush] Med 05/11/20 04:06 Active 10 ml FLUSH ASDIRECTED PRN Sodium Chloride 0.9% [Saline Flush] Med 05/11/20 04:06 Active 2.5 ml FLUSH ASDIRECTED PRN Tranexamic Acid [Cyklokapron] 1,000 mg Med 05/11/20 04:06 Active Sodium Chloride 0.9% [Normal Saline] 100 ml IV ONETIME Water For Irrigation,Sterile [Sterile Water for Med 05/11/20 04:06 Active Irrigation] 1,000 ml IRR ASDIRECTED PRN miSOPROStoL [Cytotec] Med 05/11/20 04:06 Active 200 mcg PO ONETIME PRN Scalp Electrode [WOMSER] Per Unit Routine Oth 05/11/20 04:07 Ordered Peripheral IV Insertion Adult [OM.PC] Routine Oth 05/11/20 04:07 Ordered Resuscitation Status Routine Resus Stat 05/11/20 02:47 Ordered Medication Orders Butorphanol Tartrate (Stadol) 1 mg IVPUSH Q1H PRN PRN Reason: Pain Carboprost Tromethamine (Hemabate Ds) 250 mcg IM ASDIRECTED PRN PRN Reason: Post Hemorrhage Lactated Ringer's (Ringers, Lactated) 1,000 mls @ 150 mls/hr IV ASDIRECTED EMILIA Oxytocin/Sodium Chloride (Oxytocin 30 Unit/500 Ml-Ns) 30 unit in 500 mls @ 999 mls/hr IV TITRATE EMILIA Tranexamic Acid 1,000 mg/ (Sodium Chloride) 110 mls @ 660 mls/hr IV ONETIME PRN PRN Reason: Bleeding Lidocaine HCl (Xylocaine 1%) 50 ml INJECT ONETIME PRN PRN Reason: Laceration repair Methylergonovine Maleate (Methergine) 0.2 mg IM ASDIRECTED PRN PRN Reason: Post Hemorrhage Misoprostol (Cytotec) 200 mcg PO ONETIME PRN PRN Reason: Post Hemorrhage Nalbuphine HCl (Nubain) 10 mg IVPUSH Q1H PRN PRN Reason: Pain (severe 7-10) Ondansetron HCl (Zofran) 4 mg IVPUSH Q6H PRN PRN Reason: Nausea/Vomiting Sodium Chloride (Saline Flush) 10 ml FLUSH ASDIRECTED PRN PRN Reason: Keep Vein Open Sodium Chloride (Saline Flush) 2.5 ml FLUSH ASDIRECTED PRN PRN Reason: Keep Vein Open Sodium Chloride (Normal Saline) 10 ml IV ASDIRECTED PRN PRN Reason: IV Use Sterile Water (Sterile Water For Irrigation) 1,000 ml IRR ASDIRECTED PRN PRN Reason: delivery Assessment/Plan Comment:: 29 year old G1 at 39w2d (JORJE 05/16/2020 by 1st trimester US) in spontaneous labor * Admit to Labor and Delivery * RH positive/Rubella immune/GBS negative * Epidural PRN pain management * History of anxiety, will monitor mood closely * complicated by IUGR (AC <10%), Will perform continuous monitoring. Dispo: stable. Anticipate expectant management of labor. Will augment with AROM or Pitocin if needed.
[2020-05-11] MEDS: Lactated Ringers 1,000 ML IV SCH ×2 (04:50→06:50)
--- NOTE | 2020-05-11 06:41 | PCM.PREANE ---
Preanesthetic Assessment - Anesthesia/Transfusion/Family Hx Anesthesia History: Prior Anesthesia Without Reaction Family History of Anesthesia Reaction: No - Physical Assessment NPO Status Date: 05/11/20 NPO Status Time: 00:05 Height: 1.63 m Weight: 66.678 kg ASA Class: 2 - Lab Values: Laboratory Last Values WBC 14.44 K/uL (4.0-11.0) H 05/11/20 04:15 RBC 4.33 M/uL (4.30-5.90) 05/11/20 04:15 Hgb 11.6 g/dL (12.0-16.0) L 05/11/20 04:15 Hct 35.3 % (36.0-46.0) L 05/11/20 04:15 MCV 81.5 fL (80.0-98.0) 05/11/20 04:15 MCH 26.8 pg (27.0-32.0) L 05/11/20 04:15 MCHC 32.9 g/dL (31.0-37.0) 05/11/20 04:15 RDW Std Deviation 43.1 fl (28.0-62.0) 05/11/20 04:15 RDW Coeff of Robbie 15 % (11.0-15.0) 05/11/20 04:15 Plt Count 280 K/uL (150-400) 05/11/20 04:15 MPV 11.40 fL (7.40-12.00) 05/11/20 04:15 Nucleated RBC % 0.0 /100WBC 05/11/20 04:15 Nucleated RBCs # 0 K/uL 05/11/20 04:15 Blood Type B POSITIVE 05/11/20 04:15 Antibody Screen NEGATIVE 05/11/20 04:15 - Allergies Allergies/Adverse Reactions: Allergies Allergy/AdvReac Type Severity Reaction Status Date / Time lurasidone [From Latuda] Allergy Other Verified 05/11/20 02:39 Penicillins Allergy Rash Verified 05/11/20 02:39 sertraline [From Zoloft] Allergy Other Verified 05/11/20 02:39 - Acknowledgements Anesthesia Type Planned: Epidural Pt an Appropriate Candidate for the Planned Anesthesia: Yes Alternatives and Risks of Anesthesia Discussed w Pt/Guardian: Yes Pt/Guardian Understands and Agrees with Anesthesia Plan: Yes PreAnesthesia Questionnaire HEENT History: Reports: None Cardiovascular History: Reports: None, Hypertension Respiratory History: Reports: Asthma Gastrointestinal History: Reports: None Genitourinary History: Reports: None RESPITE CARE PROVIDER History: Reports: None Musculoskeletal History: Reports: None Neurological History: Reports: None Psychiatric History: Reports: Anxiety, Bipolar, Dementia, OCD Endocrine/Metabolic History: Reports: None Hematologic History: Reports: None Immunologic History: Reports: None Oncologic (Cancer) History: Reports: None Dermatologic History: Reports: None - Infectious Disease History Infectious Disease History: Reports: Chicken Pox - Past Surgical History GI Surgical History: Reports: Cholecystectomy - HOME MEDS Home Medications: Home Meds Fluticasone Propion/Salmeterol [Advair Hfa 230-21 Mcg Inhaler] 2 puff IH BID PRN 01/03/18 [History] Montelukast Sodium [Singulair] 1 tab PO ASDIRECTED 09/08/19 [History] Pnv No.103/Folic/Om3s/Fish Oil [ Gummies] 1 each PO DAILY 11/21/19 [History] Albuterol Sulfate [Proair Digihaler] 90 mcg IH ASDIRECTED PRN 05/11/20 [History] Albuterol/Ipratropium [DuoNeb 3.0-0.5 MG/3 ML] 1 sprays(dnu) .XX ASDIRECTED PRN 05/11/20 [History] - CURRENT (IN HOUSE) MEDS Current Meds: Current Medications Butorphanol Tartrate (Stadol) 1 mg IVPUSH Q1H PRN PRN Reason: Pain Last Admin: 05/11/20 05:43 Dose: 1 mg Documented by: Carboprost Tromethamine (Hemabate Ds) 250 mcg IM ASDIRECTED PRN PRN Reason: Post Hemorrhage Lactated Ringer's (Ringers, Lactated) 1,000 mls @ 150 mls/hr IV ASDIRECTED EMILIA Oxytocin/Sodium Chloride (Oxytocin 30 Unit/500 Ml-Ns) 30 unit in 500 mls @ 999 mls/hr IV TITRATE EMILIA Tranexamic Acid 1,000 mg/ (Sodium Chloride) 110 mls @ 660 mls/hr IV ONETIME PRN PRN Reason: Bleeding Lidocaine HCl (Xylocaine 1%) 50 ml INJECT ONETIME PRN PRN Reason: Laceration repair Methylergonovine Maleate (Methergine) 0.2 mg IM ASDIRECTED PRN PRN Reason: Post Hemorrhage Misoprostol (Cytotec) 200 mcg PO ONETIME PRN PRN Reason: Post Hemorrhage Nalbuphine HCl (Nubain) 10 mg IVPUSH Q1H PRN PRN Reason: Pain (severe 7-10) Ondansetron HCl (Zofran) 4 mg IVPUSH Q6H PRN PRN Reason: Nausea/Vomiting Sodium Chloride (Saline Flush) 10 ml FLUSH ASDIRECTED PRN PRN Reason: Keep Vein Open Sodium Chloride (Saline Flush) 2.5 ml FLUSH ASDIRECTED PRN PRN Reason: Keep Vein Open Last Admin: 05/11/20 05:46 Dose: 2.5 ml Documented by: Sodium Chloride (Normal Saline) 10 ml IV ASDIRECTED PRN PRN Reason: IV Use Sterile Water (Sterile Water For Irrigation) 1,000 ml IRR ASDIRECTED PRN PRN Reason: delivery
--- NOTE | 2020-05-11 06:46 | PCM.PRNOTE ---
- Free Text/Narrative Note: Anes Note Patient requests epidural for L&D. Sitting position. Level L3-L4 midline approach. Sterile technqiue. Chlorapep scrub to lumbar area. Sterile fenestrated drape applied. Epidural space easily achieved single attempt using KELLY technique. KELLY at 3 cmj. Catht threaded 5 cm with ease. Cath secured at skin using sterile clear adhesive dressing. Test 0625 3 cc 1.5% lido with epi negative. 0628 Load 10 cc 0.2% ropivicaine with 1 mcg cc fentanyl in slow divided doses. 0635 Pump started wtih 90 cc same solution. Rate is 8 cc hr with 6 cc q 20 min prn bolus. Swapna well. Time with patient [id number] Franklin Millan [employer]
[2020-05-11] MEDS ORDERED: Ropivacaine HCl/PF 100 ML ONE (06:56)
[2020-05-11] MEDS ORDERED: fentaNYL 100 MCG/2 ML SDV ONE (06:56)
[2020-05-11] MEDS ORDERED: Lanolin 100% Cream 7 GM Tube TOP PRN (14:13)
[2020-05-11] MEDS ORDERED: oxyCODONE 5 MG Tab PO PRN (14:13)
[2020-05-11] MEDS ORDERED: Ibuprofen 800 MG Tab PO PRN (14:13)
[2020-05-11] MEDS ORDERED: Benzocaine/Menthol 20%-0.5% Spray 78 GM Cannister TOP PRN (14:13)
[2020-05-11] MEDS ORDERED: Bisacodyl 10 MG Supp RECTAL PRN (14:13)
[2020-05-11] MEDS ORDERED: Ibuprofen 400 MG Tab PO PRN (14:13)
[2020-05-11] MEDS ORDERED: Docusate Sodium 100 MG Cap PO PRN (14:13)
[2020-05-11] MEDS ORDERED: Acetaminophen 500 MG Tab PO PRN (14:13)
--- NOTE | 2020-05-11 14:16 | PCM.DEL ---
<Ginny Espinal - Last Filed: 05/11/20 14:11> L & D Note - General Info Date of Service: 05/11/20 Mother's Due Date: 05/16/20 - Delivery Note Labor: Spontaneous Delivery Outcome: Livebirth Infant Delivery Method: Spontaneous Vaginal Delivery-Single Delivery Mode: Spontaneous Presentation: Vertex Nuchal Cord: None Prep: Other Anesthesia Type: Epidural Anesthetic: Lidocaine (Xylocaine) 1% Plain Amniotic Fluid Description: Clear Episiotomy Type: None Laceration: 2nd Degree, Labial (small left labial repaired), Perineal Suture type: Vicryl Suture size: 2-0 Placenta: Intact, Spontaneous Cord: 3 Vessels Estimated Blood Loss: 150 Resuscitation Needed: No [place]: Suctioned, Bulb Syringe, Stimulated Score 1 min: 9 Score 5 min: 9 - General Info Date of Service: 05/11/20 Functional Status: Reports: Pain Controlled - Review of Systems General: Reports: No Symptoms HEENT: Reports: No Symptoms Pulmonary: Reports: No Symptoms Cardiovascular: Reports: No Symptoms Gastrointestinal: Reports: No Symptoms Genitourinary: Reports: No Symptoms Musculoskeletal: Reports: No Symptoms Skin: Reports: No Symptoms Neurological: Reports: No Symptoms Psychiatric: Reports: No Symptoms - Patient Data Weight - Most Recent: 147 lb Lab Results Last 24 Hours: Laboratory Results - last 24 hr 05/11/20 05/11/20 Range/Units 04:15 04:15 WBC 14.44 H (4.0-11.0) K/uL RBC 4.33 (4.30-5.90) M/uL Hgb 11.6 L (12.0-16.0) g/dL Hct 35.3 L (36.0-46.0) % MCV 81.5 (80.0-98.0) fL MCH 26.8 L (27.0-32.0) pg MCHC 32.9 (31.0-37.0) g/dL RDW Std Deviation 43.1 (28.0-62.0) fl RDW Coeff of Robbie 15 (11.0-15.0) % Plt Count 280 (150-400) K/uL MPV 11.40 (7.40-12.00) fL Nucleated RBC % 0.0 /100WBC Nucleated RBCs # 0 K/uL Blood Type B POSITIVE Antibody Screen NEGATIVE Med Orders - Current: Current Medications Butorphanol Tartrate (Stadol) 1 mg IVPUSH Q1H PRN PRN Reason: Pain Last Admin: 05/11/20 05:43 Dose: 1 mg Documented by: Carboprost Tromethamine (Hemabate Ds) 250 mcg IM ASDIRECTED PRN PRN Reason: Post Hemorrhage Lactated Ringer's (Ringers, Lactated) 1,000 mls @ 150 mls/hr IV ASDIRECTED [facility] Last Infusion: 05/11/20 07:05 Dose: 150 mls/hr Documented by: Oxytocin/Sodium Chloride (Oxytocin 30 Unit/500 Ml-Ns) 30 unit in 500 mls @ 999 mls/hr IV TITRATE [facility] Last Admin: 05/11/20 12:52 Dose: 2 mls/hr Documented by: Tranexamic Acid 1,000 mg/ (Sodium Chloride) 110 mls @ 660 mls/hr IV ONETIME PRN PRN Reason: Bleeding Lidocaine HCl (Xylocaine 1%) 50 ml INJECT ONETIME PRN PRN Reason: Laceration repair Methylergonovine Maleate (Methergine) 0.2 mg IM ASDIRECTED PRN PRN Reason: Post Hemorrhage Misoprostol (Cytotec) 200 mcg PO ONETIME PRN PRN Reason: Post Hemorrhage Nalbuphine HCl (Nubain) 10 mg IVPUSH Q1H PRN PRN Reason: Pain (severe 7-10) Ondansetron HCl (Zofran) 4 mg IVPUSH Q6H PRN PRN Reason: Nausea/Vomiting Sodium Chloride (Saline Flush) 10 ml FLUSH ASDIRECTED PRN PRN Reason: Keep Vein Open Sodium Chloride (Saline Flush) 2.5 ml FLUSH ASDIRECTED PRN PRN Reason: Keep Vein Open Last Admin: 05/11/20 05:46 Dose: 2.5 ml Documented by: Sodium Chloride (Normal Saline) 10 ml IV ASDIRECTED PRN PRN Reason: IV Use Sterile Water (Sterile Water For Irrigation) 1,000 ml IRR ASDIRECTED PRN PRN Reason: delivery Discontinued Medications Fentanyl (Sublimaze) Confirm Administered Dose 100 mcg .ROUTE .STK-MED ONE Stop: 05/11/20 06:57 Ropivacaine (Naropin 0.2%) Confirm Administered Dose 100 mls @ as directed .ROUTE .seedtag-MED ONE Stop: 05/11/20 06:57 - Exam General: Alert, Oriented HEENT: Pupils Equal, Pupils Reactive, EOMI, Mucous Membr. Moist/[place] Neck: Supple Lungs: Clear to Auscultation, Normal Respiratory Effort Cardiovascular: Regular Rate, Regular Rhythm GI/Abdominal Exam: Soft, No Organomegaly, No Distention, No Mass (Female) Exam: Vaginal Bleeding, Other (2nd degree perineal laceration) Back Exam: Normal Inspection, Full Range of Motion Extremities: Normal Inspection, Normal Range of Motion, Non-Tender, No Pedal Edema, Normal Capillary Refill Skin: Warm, Dry, Intact Wound/Incisions: Healing Well Neurological: No New Focal Deficit Psy/Mental Status: Alert, Normal Affect, Normal Mood - Problem List & Annotations (1) Vaginal delivery SNOMED Code(s): 685076537 Code(s): O80 - ENCOUNTER FOR FULL-TERM UNCOMPLICATED DELIVERY Status: Acute Current Visit: Yes Onset Date: ~05/11/20 - Problem List Review Problem List Initiated/Reviewed/Updated: Yes - Assessment Assessment:: 29 year old at 39+2 presented in spontaneous labor and delivered via a viable male infant apgars 9 & 9. 2nd degree perineal laceration repaired. Small left labial laceration repaired. Uterus firm. Mom and baby stable. - Plan Plan:: 29 year old G1 at 39w2d (JORJE 05/16/2020 by 1st trimester US) in spontaneous labor * Routine pp cares * RH positive/Rubella immune/GBS negative * PO pain medication PRN * History of anxiety, will monitor mood closely Dispo: stable. Anticipate routine pp course. <Lauren Alberts M - Last Filed: 05/11/20 17:22> L & D Note - Delivery Note Labor: Augmented by Oxytocin - Patient Data Lab Results Last 24 Hours: Laboratory Results - last 24 hr 05/11/20 05/11/20 Range/Units 04:15 04:15 WBC 14.44 H (4.0-11.0) K/uL RBC 4.33 (4.30-5.90) M/uL Hgb 11.6 L (12.0-16.0) g/dL Hct 35.3 L (36.0-46.0) % MCV 81.5 (80.0-98.0) fL MCH 26.8 L (27.0-32.0) pg MCHC 32.9 (31.0-37.0) g/dL RDW Std Deviation 43.1 (28.0-62.0) fl RDW Coeff of Robbie 15 (11.0-15.0) % Plt Count 280 (150-400) K/uL MPV 11.40 (7.40-12.00) fL Nucleated RBC % 0.0 /100WBC Nucleated RBCs # 0 K/uL Blood Type B POSITIVE Antibody Screen NEGATIVE Med Orders - Current: Current Medications Acetaminophen (Tylenol Extra Strength) 500 mg PO Q4H PRN PRN Reason: Pain Acetaminophen (Tylenol Extra Strength) 1,000 mg PO Q4H PRN PRN Reason: Pain Benzocaine/Menthol (Dermoplast Pain Relief 20%-0.5% Melfa) 78 gm TOP ASDIRECTED PRN PRN Reason: Perineal Comfort Measure Last Admin: 05/11/20 16:19 Dose: 1 can Documented by: Bisacodyl (Dulcolax) 10 mg RECTAL ONETIME PRN PRN Reason: Constipation Butorphanol Tartrate (Stadol) 1 mg IVPUSH Q1H PRN PRN Reason: Pain Last Admin: 05/11/20 05:43 Dose: 1 mg Documented by: Carboprost Tromethamine (Hemabate Ds) 250 mcg IM ASDIRECTED PRN PRN Reason: Post Hemorrhage Docusate Sodium (Colace) 100 mg PO BID PRN PRN Reason: Constipation Emollient Ointment (Lansinoh Hpa) 0 gm TOP ASDIRECTED PRN PRN Reason: Sore Nipples Lactated Ringer's (Ringers, Lactated) 1,000 mls @ 150 mls/hr IV ASDIRECTED [facility] Last Infusion: 05/11/20 07:05 Dose: 150 mls/hr Documented by: Oxytocin/Sodium Chloride (Oxytocin 30 Unit/500 Ml-Ns) 30 unit in 500 mls @ 999 mls/hr IV TITRATE [facility] Last Infusion: 05/11/20 13:35 Dose: 999 mls/hr Documented by: Tranexamic Acid 1,000 mg/ (Sodium Chloride) 110 mls @ 660 mls/hr IV ONETIME PRN PRN Reason: Bleeding Ibuprofen (Motrin) 400 mg PO Q4H PRN PRN Reason: Pain Ibuprofen (Motrin) 800 mg PO Q6H PRN PRN Reason: Pain Lidocaine HCl (Xylocaine 1%) 50 ml INJECT ONETIME PRN PRN Reason: Laceration repair Methylergonovine Maleate (Methergine) 0.2 mg IM ASDIRECTED PRN PRN Reason: Post Hemorrhage Methylergonovine Maleate (Methergine) 0.2 mg IM ONETIME PRN PRN Reason: Excessive Vaginal Bleeding Misoprostol (Cytotec) 200 mcg PO ONETIME PRN PRN Reason: Post Hemorrhage Nalbuphine HCl (Nubain) 10 mg IVPUSH Q1H PRN PRN Reason: Pain (severe 7-10) Ondansetron HCl (Zofran) 4 mg IVPUSH Q6H PRN PRN Reason: Nausea/Vomiting Oxycodone HCl (Oxycodone) 5 mg PO Q2H PRN PRN Reason: Pain Sodium Chloride (Saline Flush) 10 ml FLUSH ASDIRECTED PRN PRN Reason: Keep Vein Open Sodium Chloride (Saline Flush) 2.5 ml FLUSH ASDIRECTED PRN PRN Reason: Keep Vein Open Last Admin: 05/11/20 05:46 Dose: 2.5 ml Documented by: Sodium Chloride (Normal Saline) 10 ml IV ASDIRECTED PRN PRN Reason: IV Use Sterile Water (Sterile Water For Irrigation) 1,000 ml IRR ASDIRECTED PRN PRN Reason: delivery Witch Светлана (Tucks) 1 pad TOP ASDIRECTED PRN PRN Reason: comfort care Last Admin: 05/11/20 16:19 Dose: 1 tub Documented by: Discontinued Medications Fentanyl (Sublimaze) Confirm Administered Dose 100 mcg .ROUTE .STK-MED ONE Stop: 05/11/20 06:57 Ropivacaine (Naropin 0.2%) Confirm Administered Dose 100 mls @ as directed .ROUTE .STK-MED ONE Stop: 05/11/20 06:57 - My Orders Last 24 Hours: My Active Orders 05/11/20 02:47 Non Stress Test [RC] PER UNIT ROUTINE Up ad Shari [RC] ASDIRECTED Vital Signs [RC] PER UNIT ROUTINE Resuscitation Status Routine 05/11/20 04:06 Peripheral IV Care [RC] PRN Butorphanol [Stadol] 1 mg IVPUSH Q1H PRN Carboprost Tromethamine [Hemabate DS] 250 mcg IM ASDIRECTED PRN Lidocaine 1% [Xylocaine 1%] 50 ml INJECT ONETIME PRN Methylergonovine [Methergine] 0.2 mg IM ASDIRECTED PRN Nalbuphine [Nubain] 10 mg IVPUSH Q1H PRN Ondansetron [Zofran] 4 mg IVPUSH Q6H PRN Sodium Chloride 0.9% [Normal Saline] 10 ml IV ASDIRECTED PRN Sodium Chloride 0.9% [Saline Flush] 10 ml FLUSH ASDIRECTED PRN Sodium Chloride 0.9% [Saline Flush] 2.5 ml FLUSH ASDIRECTED PRN Tranexamic Acid [Cyklokapron] 1,000 mg Sodium Chloride 0.9% [Normal Saline] 100 ml IV ONETIME Water For Irrigation,Sterile [Sterile Water for Irrigation] 1,000 ml IRR ASDIRECTED PRN miSOPROStoL [Cytotec] 200 mcg PO ONETIME PRN 05/11/20 04:07 Patient Status [ADT] Routine Heart Tones [RC] CONTINUOUS May Shower [RC] ASDIRECTED Notify Provider [RC] PRN Scalp Electrode [WOMSER] Per Unit Routine Peripheral IV Insertion Adult [OM.PC] Routine 05/11/20 04:15 RPR (SYPHILIS SERO) W/ RFLX [REF] Routine Lactated Ringers [Ringers, Lactated] 1,000 ml IV ASDIRECTED Oxytocin/0.9 % Sodium Chloride [Oxytocin 30 Unit/500 ML-NS] 30 unit in 500 ml IV TITRATE 05/11/20 14:13 Acetaminophen [Tylenol Extra Strength] 1,000 mg PO Q4H PRN Acetaminophen [Tylenol Extra Strength] 500 mg PO Q4H PRN Benzocaine/Menthol [Dermoplast Pain Relief 20%-0.5% Melfa] 78 gm TOP ASDIRECTED PRN Docusate Sodium [Colace] 100 mg PO BID PRN Ibuprofen [Motrin] 400 mg PO Q4H PRN Ibuprofen [Motrin] 800 mg PO Q6H PRN Lanolin [Lansinoh HPA] See Dose Instructions TOP ASDIRECTED PRN Methylergonovine [Methergine] 0.2 mg IM ONETIME PRN bisacodyL [Dulcolax] 10 mg RECTAL ONETIME PRN oxyCODONE 5 mg PO Q2H PRN suinl Guillen [Tucks] 1 pad TOP ASDIRECTED PRN 05/11/20 14:14 Patient Status [ADT] Routine May Shower [RC] ASDIRECTED Up ad Shari [RC] ASDIRECTED Vital Signs [RC] PER UNIT ROUTINE Assess Lochia [WOMSER] Per Unit Routine Assess Uterine Involution [WOMSER] Per Unit Routine Peripheral IV Discontinue [OM.PC] Routine 05/12/20 05:11 HEMOGLOBIN/HEMATOCRIT,HH [HEME] Timed
[2020-05-11] MEDS: Witch Hazel Medicated Pads 40/Jar TOP PRN (16:19)
[2020-05-11] MEDS: Acetaminophen 500 MG Tab PO PRN (23:00)
--- NOTE | 2020-05-12 02:22 | OR ---
SURGEON: DUANE ALBERTS MD DATE OF PROCEDURE: 05/11/2020 PREOPERATIVE DIAGNOSES: 1. Term intrauterine at 39 weeks and 2 days. 2. Intrauterine growth restriction, abdominal circumference less than the 10th percentile. 3. Spontaneous labor. POSTOPERATIVE DIAGNOSES: 1. Term intrauterine at 39 weeks and 2 days. 2. Intrauterine growth restriction, abdominal circumference less than the 10th percentile. 3. Spontaneous labor. PRIMARY SURGEON: Duane Alberts MD. Present for the entire procedure. DIE HARDENER: Ginny Espinal MS-4. ANESTHESIA: Epidural. COMPLICATIONS: None known. ESTIMATED BLOOD LOSS: 150 mL. FINDINGS: Normal appearing male infant in cephalic presentation. APGARS 9/9. Clear fluid. Weight not available at time of dictation. Second-degree perineal laceration. INDICATIONS: This 29-year-old 2, at 39 weeks and 2 days, presented to Labor and Delivery in spontaneous labor. Upon arrival, she was having contractions every 3 to 5 minutes. Her cervical exam at that time was 5, 80, and -3 inches. She was cephalic. The patient was admitted for labor, which then progressed spontaneously. The patient received an epidural for pain management and spontaneous rupture of membranes occurred with clear fluid noted. DESCRIPTION OF PROCEDURE: At approximately 1230, I was notified that the patient was completely dilated and feeling the urge to push, and I presented to the patient's room shortly thereafter. She initiated pushing efforts about 1245 and continued pushing with good efforts over the next 45 minutes. The then delivered atraumatically. Nose and mouth were suctioned with a bulb. The handed off to awaiting nursing staff and patient. After approximately 1 minute, the cord was clamped and cut. Arterial, venous, and cord blood gases were then obtained. The placenta was then expressed intact. Three-vessel cord was noted. Perineal examination was then performed, and a second-degree perineal laceration was noted. This was repaired in the usual fashion with 2-0 Vicryl. Hemostasis was then noted. EBL was 150. scores were 9 and 9. The patient tolerated the procedure well. Infant and mother are recovering in patient's room in stable condition. CHANTAL / MODL /[id number] [facility]
[2020-05-12] MEDS: Witch Hazel Medicated Pads 40/Jar TOP PRN (06:44)
--- NOTE | 2020-05-12 07:43 | PCM48HPAN ---
Post Anesthesia Note - EVALUATION WITHIN 48HRS OF ANESTHETIC Vital Signs in Normal Range: Yes Patient Participated in Evaluation: Yes Respiratory Function Stable: Yes Airway Patent: Yes Cardiovascular Function Stable: Yes Hydration Status Stable: Yes Pain Control Satisfactory: Yes Nausea and Vomiting Control Satisfactory: Yes Mental Status Recovered: Yes Vital Signs: Last Vital Signs Temp 36.1 C 05/12/20 04:00 Pulse 99 05/12/20 04:00 Resp 16 05/12/20 04:00 BP 109/73 05/12/20 04:00 Pulse Ox 97 05/12/20 04:00
--- NOTE | 2020-05-12 08:15 | PCM.PNPP ---
<Ginny Espinal - Last Filed: 05/12/20 08:10> - General Info Date of Service: 05/12/20 Admission Dx/Problem (Free Text): Patient Status Order with Admit Dx/Problem 05/11/20 02:47 Patient Status [ADT] Routine 05/11/20 04:07 Patient Status [ADT] Routine Admission Diagnosis/Problem Admission Diagnosis/Problem Subjective Update: Patient doing well this am, resting in bed holding infant. Pain controlled with PO pain medication. Voiding and ambulating appropriately. and pumping. Functional Status: Reports: Pain Controlled - Review of Systems General: Reports: No Symptoms Pulmonary: Reports: No Symptoms Cardiovascular: Reports: No Symptoms Gastrointestinal: Reports: No Symptoms Genitourinary: Reports: No Symptoms Musculoskeletal: Reports: No Symptoms - General Info Date of Service: 05/12/20 - Patient Data Vital Signs - Most Recent: Last Vital Signs Temp 97 F 05/12/20 04:00 Pulse 99 05/12/20 04:00 Resp 16 05/12/20 04:00 BP 109/73 05/12/20 04:00 Pulse Ox 97 05/12/20 04:00 Weight - Most Recent: 147 lb I&O - Last 24 Hours: Intake & Output 05/11/20 05/12/20 05/12/20 22:59 06:59 14:59 Output Total 500 Balance -500 Lab Results - Last 24 Hours: Laboratory Results - last 24 hr 05/12/20 Range/Units 06:15 Hgb 9.8 L (12.0-16.0) g/dL Hct 30.2 L (36.0-46.0) % Med Orders - Current: Current Medications Acetaminophen (Tylenol Extra Strength) 500 mg PO Q4H PRN PRN Reason: Pain Acetaminophen (Tylenol Extra Strength) 1,000 mg PO Q4H PRN PRN Reason: Pain Last Admin: 05/11/20 23:00 Dose: 1,000 mg Documented by: Benzocaine/Menthol (Dermoplast Pain Relief 20%-0.5% Archer) 78 gm TOP ASDIRECTED PRN PRN Reason: Perineal Comfort Measure Last Admin: 05/11/20 16:19 Dose: 1 can Documented by: Bisacodyl (Dulcolax) 10 mg RECTAL ONETIME PRN PRN Reason: Constipation Butorphanol Tartrate (Stadol) 1 mg IVPUSH Q1H PRN PRN Reason: Pain Last Admin: 05/11/20 05:43 Dose: 1 mg Documented by: Carboprost Tromethamine (Hemabate Ds) 250 mcg IM ASDIRECTED PRN PRN Reason: Post Hemorrhage Docusate Sodium (Colace) 100 mg PO BID PRN PRN Reason: Constipation Emollient Ointment (Lansinoh Hpa) 0 gm TOP ASDIRECTED PRN PRN Reason: Sore Nipples Last Admin: 05/11/20 23:01 Dose: 1 tube Documented by: Lactated Ringer's (Ringers, Lactated) 1,000 mls @ 150 mls/hr IV ASDIRECTED [facility] Last Infusion: 05/11/20 07:05 Dose: 150 mls/hr Documented by: Oxytocin/Sodium Chloride (Oxytocin 30 Unit/500 Ml-Ns) 30 unit in 500 mls @ 999 mls/hr IV TITRATE [facility] Last Infusion: 05/11/20 13:35 Dose: 999 mls/hr Documented by: Tranexamic Acid 1,000 mg/ (Sodium Chloride) 110 mls @ 660 mls/hr IV ONETIME PRN PRN Reason: Bleeding Ibuprofen (Motrin) 400 mg PO Q4H PRN PRN Reason: Pain Ibuprofen (Motrin) 800 mg PO Q6H PRN PRN Reason: Pain Last Admin: 05/11/20 23:00 Dose: 800 mg Documented by: Lidocaine HCl (Xylocaine 1%) 50 ml INJECT ONETIME PRN PRN Reason: Laceration repair Methylergonovine Maleate (Methergine) 0.2 mg IM ASDIRECTED PRN PRN Reason: Post Hemorrhage Methylergonovine Maleate (Methergine) 0.2 mg IM ONETIME PRN PRN Reason: Excessive Vaginal Bleeding Misoprostol (Cytotec) 200 mcg PO ONETIME PRN PRN Reason: Post Hemorrhage Nalbuphine HCl (Nubain) 10 mg IVPUSH Q1H PRN PRN Reason: Pain (severe 7-10) Ondansetron HCl (Zofran) 4 mg IVPUSH Q6H PRN PRN Reason: Nausea/Vomiting Oxycodone HCl (Oxycodone) 5 mg PO Q2H PRN PRN Reason: Pain Sodium Chloride (Saline Flush) 10 ml FLUSH ASDIRECTED PRN PRN Reason: Keep Vein Open Sodium Chloride (Saline Flush) 2.5 ml FLUSH ASDIRECTED PRN PRN Reason: Keep Vein Open Last Admin: 05/11/20 05:46 Dose: 2.5 ml Documented by: Sodium Chloride (Normal Saline) 10 ml IV ASDIRECTED PRN PRN Reason: IV Use Sterile Water (Sterile Water For Irrigation) 1,000 ml IRR ASDIRECTED PRN PRN Reason: delivery Vilma Sotomayor (Tucks) 1 pad TOP ASDIRECTED PRN PRN Reason: comfort care Last Admin: 05/12/20 06:44 Dose: 1 tub Documented by: Discontinued Medications Fentanyl (Sublimaze) Confirm Administered Dose 100 mcg .ROUTE .STK-MED ONE Stop: 05/11/20 06:57 Ropivacaine (Naropin 0.2%) Confirm Administered Dose 100 mls @ as directed .ELIU PERKINS .STK-MED ONE Stop: 05/11/20 06:57 - Infant Interaction Disposition, : in Room with Family Infant Interaction: Holding Feeding: Attempted ; Nursed Fair/Poor Support Person: - Recovery Exam Fundal Tone: Firm Fundal Level: 1 Fingerbreadths Below Umbilicus Fundal Placement: Midline Lochia Amount: Small Lochia Color: Rubra/Red Perineum Description: Edematous Episiotomy/Laceration: Approximated Bladder Status: Voiding Urinary Elimination: Voided - Exam General: Alert, Oriented Neck: Supple Lungs: Clear to Auscultation, Normal Respiratory Effort Cardiovascular: Regular Rate, Regular Rhythm GI/Abdominal Exam: Soft, No Distention, Tender (appropriate) Extremities: Normal Inspection, Normal Range of Motion Skin: Warm, Dry, Intact Psy/Mental Status: Alert, Normal Affect, Normal Mood - Problem List & Annotations (1) Vaginal delivery SNOMED Code(s): 744762632 Code(s): O80 - ENCOUNTER FOR FULL-TERM UNCOMPLICATED DELIVERY Status: Acute Current Visit: Yes Onset Date: ~05/11/20 - Problem List Review Problem List Initiated/Reviewed/Updated: Yes - Assessment Assessment:: 29 year old PPD #1 s/p spontaneous vaginal delivery. - Plan Plan:: 29 year old G1 at 39w2d (JORJE 05/16/2020 by 1st trimester US) PPD #1 * Routine pp cares * RH positive/Rubella immune/GBS negative * PO pain medication PRN * Regular diet as tolerated * Encouraged fluids and ambulation * and pumping, nursing assistance as needed * History of anxiety, will monitor mood closely Dispo: stable. Anticipate d/c later today pending maternal/ status. <Lauren Alberts - Last Filed: 05/12/20 08:43> - Patient Data Vital Signs - Most Recent: Last Vital Signs Temp 97 F 05/12/20 04:00 Pulse 99 05/12/20 04:00 Resp 16 05/12/20 04:00 BP 109/73 05/12/20 04:00 Pulse Ox 97 05/12/20 04:00 I&O - Last 24 Hours: Intake & Output 05/11/20 05/12/20 05/12/20 22:59 06:59 14:59 Output Total 500 Balance -500 Lab Results - Last 24 Hours: Laboratory Results - last 24 hr 05/12/20 Range/Units 06:15 Hgb 9.8 L (12.0-16.0) g/dL Hct 30.2 L (36.0-46.0) % Med Orders - Current: Current Medications Acetaminophen (Tylenol Extra Strength) 500 mg PO Q4H PRN PRN Reason: Pain Acetaminophen (Tylenol Extra Strength) 1,000 mg PO Q4H PRN PRN Reason: Pain Last Admin: 05/11/20 23:00 Dose: 1,000 mg Documented by: Benzocaine/Menthol (Dermoplast Pain Relief 20%-0.5% Archer) 78 gm TOP ASDIRECTED PRN PRN Reason: Perineal Comfort Measure Last Admin: 05/11/20 16:19 Dose: 1 can Documented by: Bisacodyl (Dulcolax) 10 mg RECTAL ONETIME PRN PRN Reason: Constipation Butorphanol Tartrate (Stadol) 1 mg IVPUSH Q1H PRN PRN Reason: Pain Last Admin: 05/11/20 05:43 Dose: 1 mg Documented by: Carboprost Tromethamine (Hemabate Ds) 250 mcg IM ASDIRECTED PRN PRN Reason: Post Hemorrhage Docusate Sodium (Colace) 100 mg PO BID PRN PRN Reason: Constipation Emollient Ointment (Lansinoh Hpa) 0 gm TOP ASDIRECTED PRN PRN Reason: Sore Nipples Last Admin: 05/11/20 23:01 Dose: 1 tube Documented by: Lactated Ringer's (Ringers, Lactated) 1,000 mls @ 150 mls/hr IV ASDIRECTED [facility] Last Infusion: 05/11/20 07:05 Dose: 150 mls/hr Documented by: Oxytocin/Sodium Chloride (Oxytocin 30 Unit/500 Ml-Ns) 30 unit in 500 mls @ 999 mls/hr IV TITRATE [facility] Last Infusion: 05/11/20 13:35 Dose: 999 mls/hr Documented by: Tranexamic Acid 1,000 mg/ (Sodium Chloride) 110 mls @ 660 mls/hr IV ONETIME PRN PRN Reason: Bleeding Ibuprofen (Motrin) 400 mg PO Q4H PRN PRN Reason: Pain Ibuprofen (Motrin) 800 mg PO Q6H PRN PRN Reason: Pain Last Admin: 05/11/20 23:00 Dose: 800 mg Documented by: Lidocaine HCl (Xylocaine 1%) 50 ml INJECT ONETIME PRN PRN Reason: Laceration repair Methylergonovine Maleate (Methergine) 0.2 mg IM ASDIRECTED PRN PRN Reason: Post Hemorrhage Methylergonovine Maleate (Methergine) 0.2 mg IM ONETIME PRN PRN Reason: Excessive Vaginal Bleeding Misoprostol (Cytotec) 200 mcg PO ONETIME PRN PRN Reason: Post Hemorrhage Nalbuphine HCl (Nubain) 10 mg IVPUSH Q1H PRN PRN Reason: Pain (severe 7-10) Ondansetron HCl (Zofran) 4 mg IVPUSH Q6H PRN PRN Reason: Nausea/Vomiting Oxycodone HCl (Oxycodone) 5 mg PO Q2H PRN PRN Reason: Pain Sodium Chloride (Saline Flush) 10 ml FLUSH ASDIRECTED PRN PRN Reason: Keep Vein Open Sodium Chloride (Saline Flush) 2.5 ml FLUSH ASDIRECTED PRN PRN Reason: Keep Vein Open Last Admin: 05/11/20 05:46 Dose: 2.5 ml Documented by: Sodium Chloride (Normal Saline) 10 ml IV ASDIRECTED PRN PRN Reason: IV Use Sterile Water (Sterile Water For Irrigation) 1,000 ml IRR ASDIRECTED PRN PRN Reason: delivery Witch Светлана (Tucks) 1 pad TOP ASDIRECTED PRN PRN Reason: comfort care Last Admin: 05/12/20 06:44 Dose: 1 tub Documented by: Discontinued Medications Fentanyl (Sublimaze) Confirm Administered Dose 100 mcg .ROUTE .STK-MED ONE Stop: 05/11/20 06:57 Ropivacaine (Naropin 0.2%) Confirm Administered Dose 100 mls @ as directed .ROUTE .STK-MED ONE Stop: 05/11/20 06:57 - My Orders Last 24 Hours: My Active Orders 05/11/20 14:13 Acetaminophen [Tylenol Extra Strength] 1,000 mg PO Q4H PRN Acetaminophen [Tylenol Extra Strength] 500 mg PO Q4H PRN Benzocaine/Menthol [Dermoplast Pain Relief 20%-0.5% Archer] 78 gm TOP ASDIRECTED PRN Docusate Sodium [Colace] 100 mg PO BID PRN Ibuprofen [Motrin] 400 mg PO Q4H PRN Ibuprofen [Motrin] 800 mg PO Q6H PRN Lanolin [Lansinoh HPA] See Dose Instructions TOP ASDIRECTED PRN Methylergonovine [Methergine] 0.2 mg IM ONETIME PRN bisacodyL [Dulcolax] 10 mg RECTAL ONETIME PRN oxyCODONE 5 mg PO Q2H PRN witch Светлана [Tucks] 1 pad TOP ASDIRECTED PRN 05/11/20 14:14 Patient Status [ADT] Routine May Shower [RC] ASDIRECTED Up ad Shari [RC] ASDIRECTED Vital Signs [RC] PER UNIT ROUTINE Assess Lochia [WOMSER] Per Unit Routine Assess Uterine Involution [WOMSER] Per Unit Routine Peripheral IV Discontinue [OM.PC] Routine - Plan Plan:: Agree with above. Patient desires Depo provera for contraception, Rx sent to pharmacy. Reviewed discharge precautions including to notify clinic with temperature >100.4, intractable nausea/vomiting, severe pain not controlled by Tylenol or ibuprofen, heavy vaginal bleeding with soaking 1-2 pads an hour for more than 2 hours. Questions elicited and answered.
[2020-05-12] MEDS: Acetaminophen 500 MG Tab PO PRN (15:01)
[2020-05-12] MEDS ORDERED: Ferrous Sulfate 325 MG Tab PO SCH (17:00)
[2020-05-12 19:29] VITALS: BP 118/79; PULSE 68
== END 2020-05-12 17:15 | disposition home or self-care (01) | DRG 807 ==
LOC: MW.OB 02:17 → MW.OBCHECK 02:17 → MW.OB 04:07 → OBSVTOIN 13:34 → MW.OB 21:10
PROVIDERS: ADMIT Obstetrics & Gynecology; ATTEND Obstetrics & Gynecology
PROC: 10E0XZZ Delivery of Products of Conception, External Approach (ICD-10-PCS; principal; 2020-05-11)
PROC: 0KQM0ZZ Repair Perineum Muscle, Open Approach (ICD-10-PCS; 2020-05-11)
PROC: 10907ZC Drainage of Amniotic Fluid, Therapeutic from Products of Conception, Via Natural or Artificial Opening (ICD-10-PCS; 2020-05-11)
PROC: 3E0R3BZ Introduction of Anesthetic Agent into Spinal Canal, Percutaneous Approach (ICD-10-PCS; 2020-05-11)
PROC: 00HU33Z Insertion of Infusion Device into Spinal Canal, Percutaneous Approach (ICD-10-PCS; 2020-05-11)
DX: O36.5930 Maternal care for other known or suspected poor fetal growth, third trimester, not applicable or unspecified (principal); Z37.0 Single live birth; Z3A.39 39 weeks gestation of pregnancy; O70.1 Second degree perineal laceration during delivery; O99.52 Diseases of the respiratory system complicating childbirth; J45.909 Unspecified asthma, uncomplicated
CPT/HCPCS: 36415; 51702; 59025; 59409; 82803; 85014; 85018; 85027; 86592; 86850; 86900; 86901; A9270-GY; J0595; J2590; J2795; J3010; J7120

== ENCOUNTER 2021-01-05 09:12 | Emergency (ER) | payer BC ==
--- NOTE | 2021-01-05 10:37 | EDM.PDOC ---
ED HPI GENERAL MEDICAL PROBLEM - General Stated Complaint: FEVER, LOWER BACK PAIN Time Seen by Provider: 01/05/21 10:34 Source of Information: Reports: Patient History Limitations: Reports: No Limitations - History of Present Illness INITIAL COMMENTS - FREE TEXT/NARRATIVE: HISTORY AND PHYSICAL: History of present illness: The patient is a 30-year-old female who presents to the emergency department with complaints of a temperature of 102, massive headache, tailbone pain, decreased appetite, and cough since Wednesday. The patient's and infant some have the same symptoms. The patient has not been vaccinated for COVID-19. They feel as if there was some possible exposure to COVID-19. Patient denies any change in vision, syncope or near syncope. Denies any chest pain, back pain, or shortness of breath. Denies any abdominal pain, nausea, vomiting, diarrhea, constipation or dysuria. Has not noted any blood in urine or stool. Review of systems: As per history of present illness and below otherwise all systems reviewed and negative. Past medical history: As per history of present illness and as reviewed below otherwise noncontributory. Surgical history: As per history of present illness and as reviewed below otherwise noncontributory. Social history: See social history for further information Family history: As per history of present illness and as reviewed below otherwise noncontributory. Physical exam: General: Well developed and well nourished. Alert and orientated x 3. Nontoxic in appearance and in no acute distress. Vital signs are stable and have been reviewed by me. Nursing notes were reviewed. HEENT: Atraumatic, normocephalic, pupils equal and reactive bilaterally, negative for conjunctival pallor or scleral icterus, mucous membranes moist, TMs normal bilaterally, throat clear, neck supple, nontender, trachea midline. No drooling or trismus noted. No meningeal signs. No hot potato voice noted. Lungs: Clear to auscultation bilaterally. No wheezes, rales, or rhonchi. Chest nontender. Normal work of breathing, no accessory muscles used. Heart: S1S2, regular rate and rhythm without overt murmur, gallops, or rubs. No JVD. No peripheral edema Abdomen: Soft, nondistended, nontender. Normoactive bowel sounds. Negative for masses or costovertebral tenderness. Skin: Intact, warm, dry. No lesions or rashes noted. Hematologic: No petechiae or purpra. Mucosa appropriate color and normal nail bed color and refill. Extremities: Atraumatic, moves all extremities per self without difficulty or deficits, negative for cords or calf pain. Neurovascular unremarkable. Neuro: Awake, alert, oriented. Cranial nerves II through XII unremarkable. Cerebellum unremarkable. Motor and sensory unremarkable throughout. Exam nonfocal. Psychiatric: Mood and affect are appropriate. Normal thought process. Answering questions appropriately. Notes: *This patient was seen and evaluated during the 2019 SARS-CoV-2 novel coronavirus pandemic period. Community viral transmission is ongoing at time of this encounter and the emergency department is operating under pandemic response procedures. As stated above the patient is a 30-year-old who presents to the emergency department with complaints of fever max 102, headache, tailbone pain, cough and decreased appetite that started Wednesday. Her and son all have the same type of symptoms. We will test the infant for Covid, RSV, flu and to a chest x-ray. If the infant is positive then the patient is presumptively COVID- 19 positive. The son did test positive for COVID-19. I have instructed the patient that she is presentable positive and can go to the walk-in clinic to obtain further testing. I think patient that this is supportive in nature. That if she can tolerate the fever she is allowed the fever to happen, however she is unable to tolerate it then take Tylenol or Motrin. Just to drink plenty of fluids taken soups such as chicken noodle soup. The patient is agreeable this plan. I have talked with the patient about today's findings, in addition to providing specific details for plan of care. Reassessment at the time of disposition demonstrates that the patient is in no acute distress. The patient is stable for discharge, counseling was provided and we discussed in great detail signs and symptoms that would prompt them to return to the Emergency Department. Medication, follow up and supportive care measures were reviewed and discussed. Voices understanding and is agreeable to plan of care. Denies any further questions or concerns at this time. Impression: Presumptive COVID-19 Plan: 1. You were evaluated today on an emergent basis. Your complaints of a fever, headache, and hip pain was evaluated and found to be a viral infection. As your symptoms are minor and your vital signs are stable we have not tested you for Covid at this time. We have tested your infant son. If he is positive it would presume that you are +2. However you can go to the walk-in clinic for further testing. At this time you would just treat the symptoms. Get plenty of fluids and you can eat foods such as chicken noodle soup. You can do hot tea with honey for your cough. If you have any change in symptoms you can return to the emergency department. 2. You can alternate Tylenol and ibuprofen as needed for pain and fever management. 3. We encourage you to follow up with your primary care provider and/or recommended specialist in the next few days for re-evaluation and further care/management. 4. If your symptoms should worsen, new symptoms develop or any of the signs and symptoms we discussed should arise please return to the emergency room or call 911 (if needed). Definitive disposition and diagnosis as appropriate pending reevaluation and review of above. back Pain Score (Numeric/FACES): 8 - Related Data Allergies Allergy/AdvReac Type Severity Reaction Status Date / Time lurasidone [From Latuda] Allergy Other Verified 01/05/21 10:36 Penicillins Allergy Rash Verified 01/05/21 10:36 sertraline [From Zoloft] Allergy Other Verified 01/05/21 10:36 Home Meds: Home Meds Fluticasone Propion/Salmeterol [Advair Hfa 230-21 Mcg Inhaler] 2 puff IH BID PRN 01/03/18 [History] Montelukast Sodium [Singulair] 1 tab PO ASDIRECTED 09/08/19 [History] Pnv No.103/Folic/Om3s/Fish Oil [ Gummies] 1 each PO DAILY 11/21/19 [History] Albuterol Sulfate [Proair Digihaler] 90 mcg IH ASDIRECTED PRN 05/11/20 [History] Albuterol/Ipratropium [DuoNeb 3.0-0.5 MG/3 ML] 1 sprays(dnu) .XX ASDIRECTED PRN 05/11/20 [History] Ferrous Sulfate 325 mg PO BIDAC 30 Days #60 tablet 05/12/20 [Rx] Norethindrone [Margaret] 0.35 mg PO DAILY #28 tablet 05/12/20 [Rx] Past Medical History HEENT History: Reports: Impaired Vision Cardiovascular History: Reports: None, Hypertension Respiratory History: Reports: Asthma Gastrointestinal History: Reports: None Genitourinary History: Reports: None [employer]IAN History: Reports: Musculoskeletal History: Reports: Other (See Below) Other Musculoskeletal History: history of fractured rib Neurological History: Reports: None Psychiatric History: Reports: Anxiety, Bipolar, Dementia, Depression, OCD Endocrine/Metabolic History: Reports: None Hematologic History: Reports: None Immunologic History: Reports: None Oncologic (Cancer) History: Reports: None Dermatologic History: Reports: None - Infectious Disease History Infectious Disease History: Reports: Chicken Pox - Past Surgical History HEENT Surgical History: Reports: Oral Surgery Respiratory Surgical History: Reports: None GI Surgical History: Reports: Cholecystectomy Musculoskeletal Surgical History: Reports: None Social & Family History - Family History Family Medical History: No Pertinent Family History Cardiac: Reports: Hypertension, [place], Pacemaker OBGYN: Reports: Psychiatric: Reports: Depression Endocrine/Metabolic: Reports: Diabetes, type II Oncologic: Reports: Colon, Metastatic - Caffeine Use Caffeine Use: Reports: Soda Other Caffeine Use: occasional use ED ROS GENERAL - Review of Systems Review Of Systems: Comprehensive ROS is negative, except as noted in HPI. ED EXAM, GENERAL - Physical Exam Exam: See Below (See dictation) Course - Vital Signs Last Recorded V/S: Last Vital Signs Temp 97.3 F 01/05/21 11:59 Pulse 106 H 01/05/21 11:59 Resp 16 01/05/21 11:59 BP 94/64 01/05/21 11:59 Pulse Ox 97 01/05/21 11:59 Departure - Departure Time of Disposition: 11:47 Disposition: Home, Self-Care 01 Condition: Good Clinical Impression: Viral illness, COVID-19 - Discharge Information *PRESCRIPTION DRUG MONITORING PROGRAM REVIEWED*: Not Applicable *COPY OF PRESCRIPTION DRUG MONITORING REPORT IN PATIENT [place]: Not Applicable Instructions: Viral Illness, Adult Referrals: Marianne Noriega MD [Primary Care Provider] - Forms: ED Department Discharge Additional Instructions: The following information is given to patients seen in the emergency department who are being discharged to home. This information is to outline your options for follow-up care. We provide all patients seen in our emergency department with a follow-up referral. The need for follow-up, as well as the timing and circumstances, are variable depending upon the specifics of your emergency department visit. If you don't have a primary care physician on staff, we will provide you with a referral. We always advise you to contact your personal physician following an emergency department visit to inform them of the circumstance of the visit and for follow-up with them and/or the need for any referrals to a consulting specialist. The emergency department will also refer you to a specialist when appropriate. This referral assures that you have the opportunity for follow-up care with a specialist. All of these measure are taken in an effort to provide you with optimal care, which includes your follow-up. Under all circumstances we always encourage you to contact your private physician who remains a resource for coordinating your care. When calling for follow-up care, please make the office aware that this follow-up is from your recent emergency room visit. If for any reason you are refused follow-up, please contact the [facility] Emergency Department at and asked to speak to the emergency department charge nurse. [facility] - Primary [facility] [address] [place] [address] [place] [address] Plan: 1. You were evaluated today on an emergent basis. Your complaints of a fever, headache, and hip pain was evaluated and found to be a viral infection. As your symptoms are minor and your vital signs are stable we have not tested you for Covid at this time. We have tested your son. If he is positive it would presume that you are +2. However you can go to the walk-in clinic for further testing. At this time you would just treat the symptoms. Get plenty of fluids and you can eat foods such as chicken noodle soup. You can do hot tea with honey for your cough. If you have any change in symptoms you can return to the emergency department. 2. You can alternate Tylenol and ibuprofen as needed for pain and fever management. 3. We encourage you to follow up with your primary care provider and/or recommended specialist in the next few days for re-evaluation and further care/management. 4. If your symptoms should worsen, new symptoms develop or any of the signs and symptoms we discussed should arise please return to the emergency room or call 911 (if needed).
[2021-01-05 12:00] VITALS: BP 94/64; PULSE 106
== END 2021-01-05 12:01 | disposition home or self-care (01) ==
LOC: MW.ED 09:12
DX: U07.1 COVID-19 (principal); I10 Essential (primary) hypertension; Z88.0 Allergy status to penicillin; Z88.8 Allergy status to other drugs, medicaments and biological substances
CPT/HCPCS: 99283

== ENCOUNTER 2022-07-16 10:45 | Inpatient (IN) | payer OTHER ==
[2022-07-16] MEDS ORDERED: Carboprost Tromethamine 250 MCG/1 ML Amp IM PRN (12:41)
[2022-07-16] MEDS ORDERED: Lidocaine 1% 50 ML MDV INJECT PRN (12:41)
[2022-07-16] MEDS ORDERED: Misoprostol 200 MCG Tab PO PRN (12:41)
[2022-07-16] MEDS ORDERED: Tranexamic Acid 1,000 MG in Sodium Chloride 0.9% 100 ML IV PRN (12:41)
[2022-07-16] MEDS ORDERED: Water For Irrigation,Sterile 1,000 ML Container IRR PRN (12:41)
[2022-07-16] MEDS ORDERED: Sodium Chloride 0.9% 10 ML Syringe FLUSH PRN (12:41)
[2022-07-16] MEDS ORDERED: Butorphanol 1 MG/ML SDV IVPUSH PRN (12:41)
[2022-07-16] MEDS ORDERED: Sodium Chloride 0.9% 20 ML SDV IV PRN (12:41)
[2022-07-16] MEDS ORDERED: Sodium Chloride 0.9% 2.5 ML Syringe FLUSH PRN (12:41)
[2022-07-16] MEDS ORDERED: Methylergonovine 0.2 MG/1 ML Amp IM PRN (12:41)
[2022-07-16] MEDS ORDERED: Oxytocin/0.9 % Sodium Chloride 30 UNIT/500 ML BAG IV SCH (12:45)
[2022-07-16] MEDS: Lactated Ringers 1,000 ML IV SCH ×2 (13:19→16:01)
[2022-07-16] MEDS ORDERED: ePHEDrine 50 MG/ML SDV IVPUSH PRN ×2 (13:46)
[2022-07-16] MEDS ORDERED: Phenylephrine HCl 0.5 MG/5 ML AMP IVPUSH PRN (13:46)
[2022-07-16] MEDS ORDERED: Ropivacaine HCl/PF 400 MG in Premix Bag 1 BAG EPIDUR SCH (14:00)
[2022-07-16] MEDS ORDERED: Ondansetron 4 MG/2 ML SDV ONE (15:15)
[2022-07-16] MEDS ORDERED: Ondansetron 4 MG/2 ML SDV IVPUSH PRN (15:17)
[2022-07-16] MEDS ORDERED: Dexmedetomidine 200 MCG/2 ML SDV ONE (15:17)
[2022-07-16] MEDS ORDERED: Ibuprofen 400 MG Tab PO PRN (18:24)
[2022-07-16] MEDS ORDERED: Benzocaine/Menthol 20%-0.5% Spray 78 GM Cannister TOP PRN (18:24)
[2022-07-16] MEDS ORDERED: Bisacodyl 10 MG Supp RECTAL PRN (18:24)
[2022-07-16] MEDS ORDERED: Lanolin 100% Cream 7 GM Tube TOP PRN (18:24)
[2022-07-16] MEDS ORDERED: Witch Hazel Medicated Pads 40/Jar TOP PRN (18:24)
[2022-07-16] MEDS ORDERED: Docusate Sodium 100 MG Cap PO PRN (18:24)
[2022-07-16] MEDS ORDERED: Acetaminophen 500 MG Tab PO PRN ×2 (18:24)
[2022-07-16] MEDS ORDERED: oxyCODONE 5 MG Tab PO PRN (18:24)
[2022-07-16] MEDS ORDERED: Ibuprofen 800 MG Tab PO PRN (18:24)
[2022-07-17 21:41] VITALS: BP 111/76; PULSE 81
== END 2022-07-17 20:30 | disposition home or self-care (01) | DRG 807 ==
LOC: MW.OBCHECK 10:45 → MW.OB 10:47 → MW.OBCHECK 12:29 → MW.OB 12:30 → OBSVTOIN 18:05 → MW.OB 21:17
PROVIDERS: ADMIT Obstetrics & Gynecology; ATTEND Obstetrics & Gynecology
PROC: 10E0XZZ Delivery of Products of Conception, External Approach (ICD-10-PCS; principal; 2022-07-16)
PROC: 10907ZC Drainage of Amniotic Fluid, Therapeutic from Products of Conception, Via Natural or Artificial Opening (ICD-10-PCS; 2022-07-16)
DX: O99.52 Diseases of the respiratory system complicating childbirth (principal); Z37.0 Single live birth; J45.909 Unspecified asthma, uncomplicated; Z3A.39 39 weeks gestation of pregnancy
CPT/HCPCS: 36415; 51702; 59025; 59409; 82803; 85014; 85018; 85027; 86592; 86850; 86900; 86901; A9270-GY; J2405; J2590; J3490; J7120

== ENCOUNTER 2024-12-18 02:54 | Emergency (ER) | payer SELFPAY ==
[2024-12-18] MEDS: Ondansetron 4 MG/2 ML SDV IVPUSH ONE (03:17)
[2024-12-18 03:21] LABS: BASOPHILS ABSOLUTE AUTO 0.04 K/uL (0.00-0.20); BASOPHILS PERCENT AUTO 0.4 % (0.0-1.0); EOSINOPHILS ABSOLUTE AUTO 0.11 K/uL (0.00-0.45); EOSINOPHILS PERCENT AUTO 1.2 % (0.0-6.0); IMMATURE GRAN ABSOLUTE AUTO 0.05 K/uL (0.00-0.05); IMMATURE GRAN PERCENT AUTO 0.5 % (0.0-0.4); LYMPHOCYTES ABSOLUTE AUTO 4.15 K/uL (1.00-4.80); LYMPHOCYTES PERCENT AUTO 44.9 % (24.0-44.0); MEAN PLATELET VOLUME 9.3 fL (9.4-12.3); MONOCYTES ABSOLUTE AUTO 0.66 K/uL (0.00-0.80); MONOCYTES PERCENT AUTO 7.1 % (0.0-8.0); NEUTROPHILS ABSOLUTE AUTO 4.23 K/uL (1.80-7.70); NEUTROPHILS PERCENT AUTO 45.9 % (41.0-71.0); NRBC ABSOLUTE 0.00 K/uL (0.00-0.02); NRBC PERCENT 0.0 /100WBC (0.0-0.2); PLATELET COUNT,PLT 290 K/uL (150-400); RED BLOOD CELL COUNT 4.64 M/uL (4.10-5.30); WHITE BLOOD CELL COUNT,WBC 9.24 K/uL (3.9-11.3)
[2024-12-18] MEDS: Iopamidol 755 MG/ML 500 ML Multipack Bottle IVPUSH ONE (03:34)
[2024-12-18 03:37] LABS: A/G RATIO 1.1 (0.9-1.6); ALANINE AMINOTRANSFERASE,ALT 33 IU/L (14-63); ASPARTATE AMNIOTRANSFERASE,AST 21 IU/L (15-37); BILIRUBIN TOTAL 0.3 mg/dL (0.2-1.0); BLOOD UREA NITROGEN,BUN 10 mg/dL (7.0-18.0); CARBON DIOXIDE,CO2 25.6 mmol/L (21.0-32.0); CHLORIDE,CL 103 mmol/L (98-107); CREATININE 0.7 mg/dL (0.6-1.0); GLUCOSE RANDOM 121 mg/dL (74-106); POTASSIUM,K 3.5 mmol/L (3.5-5.1); PROTEIN TOTAL,TP 7.3 g/dL (6.4-8.2); SODIUM,NA 141 mmol/L (136-145)
[2024-12-18 03:42] LABS: ESTIMATED GFR 116 mL/min (>60); HCG QUANTITATIVE < 1.0 mIU/mL
[2024-12-18 04:03] LABS: APPEARANCE,URINE CLEAR; GLUCOSE,URINE NEGATIVE (NEGATIVE); OCCULT BLOOD,URINE NEGATIVE (NEGATIVE)
[2024-12-18] MEDS: Ketorolac 30 MG/ML SDV IVPUSH ONE (06:48)
[2024-12-18 06:53] VITALS: BP 119/82; PULSE 90
== END 2024-12-18 07:43 | disposition home or self-care (01) ==
LOC: MW.ED 02:54
DX: N83.201 Unspecified ovarian cyst, right side (principal); Z88.8 Allergy status to other drugs, medicaments and biological substances; Z88.0 Allergy status to penicillin; Z90.49 Acquired absence of other specified parts of digestive tract
CPT/HCPCS: 36415; 74177; 76830; 76857; 80053; 81003; 84702; 85025; 96374; 96375; 96376; 99284; J1171; J1885; J2270; J2405; Q9967; 99283

== ENCOUNTER 2024-12-18 22:02 | Observation (INO) | payer BC ==
[2024-12-18] MEDS: Ketorolac 30 MG/ML SDV IVPUSH ONE (22:31)
[2024-12-18] MEDS: Ondansetron 4 MG/2 ML SDV IVPUSH ONE (22:31)
[2024-12-18 22:36] LABS: BASOPHILS ABSOLUTE AUTO 0.03 K/uL (0.00-0.20); BASOPHILS PERCENT AUTO 0.3 % (0.0-1.0); EOSINOPHILS ABSOLUTE AUTO 0.04 K/uL (0.00-0.45); EOSINOPHILS PERCENT AUTO 0.4 % (0.0-6.0); IMMATURE GRAN ABSOLUTE AUTO 0.04 K/uL (0.00-0.05); IMMATURE GRAN PERCENT AUTO 0.4 % (0.0-0.4); LYMPHOCYTES ABSOLUTE AUTO 1.63 K/uL (1.00-4.80); LYMPHOCYTES PERCENT AUTO 18.0 % (24.0-44.0); MEAN PLATELET VOLUME 9.5 fL (9.4-12.3); MONOCYTES ABSOLUTE AUTO 0.73 K/uL (0.00-0.80); MONOCYTES PERCENT AUTO 8.1 % (0.0-8.0); NEUTROPHILS ABSOLUTE AUTO 6.59 K/uL (1.80-7.70); NEUTROPHILS PERCENT AUTO 72.8 % (41.0-71.0); NRBC ABSOLUTE 0.00 K/uL (0.00-0.02); NRBC PERCENT 0.0 /100WBC (0.0-0.2); PLATELET COUNT,PLT 246 K/uL (150-400); RED BLOOD CELL COUNT 4.51 M/uL (4.10-5.30); WHITE BLOOD CELL COUNT,WBC 9.06 K/uL (3.9-11.3)
[2024-12-18 22:57] LABS: INR 1.09 (0.86-1.11); PTT,PARTIAL THROMBOPLSTIN TIME 28.4 SEC (23.9-30.7)
[2024-12-18 23:06] LABS: A/G RATIO 1.1 (0.9-1.6); ALANINE AMINOTRANSFERASE,ALT 189.0 IU/L (14-63); ASPARTATE AMNIOTRANSFERASE,AST 97.0 IU/L (15-37); BILIRUBIN TOTAL 0.9 mg/dL (0.2-1.0); BLOOD UREA NITROGEN,BUN 10.0 mg/dL (7.0-18.0); CARBON DIOXIDE,CO2 25.0 mmol/L (21.0-32.0); CHLORIDE,CL 104.0 mmol/L (98-107); CREATININE 0.7 mg/dL (0.6-1.0); EST CRCL DRUG DOSING (CG) 93.68 mL/min; ESTIMATED GFR 116.0 mL/min (>60); GLUCOSE RANDOM 139.0 mg/dL (74-106); POTASSIUM,K 3.5 mmol/L (3.5-5.1); PROTEIN TOTAL,TP 7.3 g/dL (6.4-8.2); SODIUM,NA 139.0 mmol/L (136-145)
[2024-12-19] MEDS: Lactated Ringers 1,000 ML IV SCH
[2024-12-19] MEDS: Ketorolac 30 MG/ML SDV IVPUSH SCH (04:33)
[2024-12-19 05:29] LABS: BASOPHILS ABSOLUTE AUTO 0.04 K/uL (0.00-0.20); BASOPHILS PERCENT AUTO 0.5 % (0.0-1.0); EOSINOPHILS ABSOLUTE AUTO 0.09 K/uL (0.00-0.45); EOSINOPHILS PERCENT AUTO 1.1 % (0.0-6.0); IMMATURE GRAN ABSOLUTE AUTO 0.04 K/uL (0.00-0.05); IMMATURE GRAN PERCENT AUTO 0.5 % (0.0-0.4); LYMPHOCYTES ABSOLUTE AUTO 2.31 K/uL (1.00-4.80); LYMPHOCYTES PERCENT AUTO 28.7 % (24.0-44.0); MEAN PLATELET VOLUME 9.8 fL (9.4-12.3); MONOCYTES ABSOLUTE AUTO 0.60 K/uL (0.00-0.80); MONOCYTES PERCENT AUTO 7.5 % (0.0-8.0); NEUTROPHILS ABSOLUTE AUTO 4.97 K/uL (1.80-7.70); NEUTROPHILS PERCENT AUTO 61.7 % (41.0-71.0); NRBC ABSOLUTE 0.00 K/uL (0.00-0.02); NRBC PERCENT 0.0 /100WBC (0.0-0.2); PLATELET COUNT,PLT 208 K/uL (150-400); RED BLOOD CELL COUNT 3.85 M/uL (4.10-5.30); WHITE BLOOD CELL COUNT,WBC 8.05 K/uL (3.9-11.3)
[2024-12-19 05:58] LABS: A/G RATIO 1.0 (0.9-1.6); ALANINE AMINOTRANSFERASE,ALT 140.0 IU/L (14-63); ASPARTATE AMNIOTRANSFERASE,AST 60.0 IU/L (15-37); BILIRUBIN TOTAL 0.7 mg/dL (0.2-1.0); BLOOD UREA NITROGEN,BUN 10.0 mg/dL (7.0-18.0); CARBON DIOXIDE,CO2 24.6 mmol/L (21.0-32.0); CHLORIDE,CL 108.0 mmol/L (98-107); CREATININE 0.7 mg/dL (0.6-1.0); EST CRCL DRUG DOSING (CG) 93.68 mL/min; GLUCOSE RANDOM 114.0 mg/dL (74-106); POTASSIUM,K 3.5 mmol/L (3.5-5.1); PROTEIN TOTAL,TP 6.0 g/dL (6.4-8.2); SODIUM,NA 141.0 mmol/L (136-145)
[2024-12-19 05:59] LABS: ESTIMATED GFR 116.0 mL/min (>60)
[2024-12-19] MEDS: Ondansetron 4 MG/2 ML SDV IVPUSH PRN (12:22)
[2024-12-20 08:51] LABS: A/G RATIO 0.9 (0.9-1.6); ALANINE AMINOTRANSFERASE,ALT 99.0 IU/L (14-63); ASPARTATE AMNIOTRANSFERASE,AST 33.0 IU/L (15-37); BILIRUBIN TOTAL 0.5 mg/dL (0.2-1.0); BLOOD UREA NITROGEN,BUN 5.0 mg/dL (7.0-18.0); CARBON DIOXIDE,CO2 24.8 mmol/L (21.0-32.0); CHLORIDE,CL 109.0 mmol/L (98-107); CREATININE 0.6 mg/dL (0.6-1.0); EST CRCL DRUG DOSING (CG) 109.29 mL/min; ESTIMATED GFR 121.0 mL/min (>60); GLUCOSE RANDOM 106.0 mg/dL (74-106); POTASSIUM,K 3.7 mmol/L (3.5-5.1); PROTEIN TOTAL,TP 6.3 g/dL (6.4-8.2); SODIUM,NA 142.0 mmol/L (136-145)
[2024-12-20 11:24] VITALS: BP 109/75; PULSE 93
[2024-12-21 16:07] LABS: HAV AB IGM Negative (Negative); HBC IGM Negative (Negative); HEP B SURG AG Negative (Negative); HEP C AB BY CIA Negative (Negative); HEP C AB BY CIA INDEX <0.02 IV
== END 2024-12-20 10:56 | disposition home or self-care (01) ==
LOC: MW.ED 22:02 → MW.OB 23:15
PROVIDERS: ADMIT Obstetrics & Gynecology; ATTEND Obstetrics & Gynecology
DX: N80.121 Deep endometriosis of right ovary (principal); R74.01 Elevation of levels of liver transaminase levels; N83.201 Unspecified ovarian cyst, right side; F31.9 Bipolar disorder, unspecified; Z88.6 Allergy status to analgesic agent; Z88.0 Allergy status to penicillin; Z88.5 Allergy status to narcotic agent; Z79.899 Other long term (current) drug therapy
CPT/HCPCS: 36415; 76705; 80053; 80074; 85025; 85610; 85730; 96374; 96375; 99284; A9270; J1171; J1885; J2405; J7030; J7120; 96361; 96376; 99231; 99238; 99283; 99285; G0378

== ENCOUNTER 2024-12-26 08:44 | Day surgery (SDC) | payer BC ==
[~2024-12-26 08:44] MED LIST: Albuterol 0.083% 2.5 MG/3 ML Neb Soln NEB PRN; Lactated Ringers 1,000 ML IV SCH; Naloxone 0.4 MG/ML SDV IVPUSH PRN; fentaNYL 50 MCG/ML SDV IVPUSH PRN
[2024-12-26] MEDS: Scopalamine 1mg/3day Transdermal Patch TOP ONE (08:55)
[2024-12-26] MEDS: Lactated Ringers 1,000 ML IV SCH (09:17)
[2024-12-26] MEDS ORDERED: propofoL 500 MG/50 ML 50 ML ONE ×2 (09:28→11:57)
[2024-12-26] MEDS ORDERED: Propofol 200 MG/20 ML SDV ONE (09:28)
[2024-12-26] MEDS ORDERED: fentaNYL 100 MCG/2 ML SDV ONE (09:28)
[2024-12-26] MEDS ORDERED: Morphine 10 MG/ML SDV ONE (09:28)
[2024-12-26] MEDS ORDERED: dexmedeTOMIDine HCl 200 MCG/2 ML SDV ONE (09:29)
[2024-12-26] MEDS ORDERED: Ropivacaine 0.5% 5 MG/ML 30 ML SDV ONE (09:33)
[2024-12-26] MEDS ORDERED: Midazolam 1 MG/ML 2 ML SDV ONE (10:49)
[2024-12-26] MEDS ORDERED: Ondansetron 4 MG/2 ML SDV ONE (10:50)
[2024-12-26] MEDS ORDERED: Ketorolac 30 MG/ML SDV ONE (10:50)
[2024-12-26] MEDS ORDERED: Dexamethasone 4 MG/ML 5 ML MDV ONE (10:50)
[2024-12-26] MEDS ORDERED: Lidocaine 2% 11 ML Jelly Filled Syringe ONE (11:26)
[2024-12-26] MEDS: Ondansetron 4 MG/2 ML SDV IVPUSH PRN (13:26)
[2024-12-26 16:44] VITALS: BP 96/63; PULSE 83
== END 2024-12-26 15:20 | disposition home or self-care (01) ==
LOC: MW.SDS 08:44
PROVIDERS: ATTEND Obstetrics & Gynecology
DX: N83.201 Unspecified ovarian cyst, right side (principal); N80.101 Endometriosis of right ovary, unspecified depth; Z88.0 Allergy status to penicillin; Z88.8 Allergy status to other drugs, medicaments and biological substances; Z79.899 Other long term (current) drug therapy
CPT/HCPCS: 58662; A9270; C1729; J0665; J0690; J1100; J1171; J1308; J1885; J2250; J2272; J2405; J2704; J2795; J3010; J7120; J7999; 00840; 64488; J2371; J3490